=== PATIENT | male | born 1965 | race Caucasian/White ===

== ENCOUNTER 2025-02-24 13:10 | Emergency (ER) | payer BC ==
[~2025-02-24] VITALS: Ht 185.4 cm; Wt 97.5 kg
[~2025-02-24 13:10] MED LIST: APIX5TAB PO; EMPA10TA PO; FLEC150T2 PO; ROSU10TA72 PO
[2025-02-24 13:50] LABS: IMMATURE GRANULOCYTE ABSOLUTE 0.01 K/uL (0-1); NUCLEATED RED BLOOD CELLS 0.0 % (0.0-0.19); PLATELET COUNT (AUTO) 188 K/uL (130-400); RED BLOOD CELL COUNT(AUTO) 5.38 MIL/uL (4.50-6.20); RED CELL DISTRIBUTION WIDTH 12.9 % (11.0-15.5); WHITE BLOOD COUNT (AUTO) 6.5 K/uL (4.8-10.8)
[2025-02-24 13:52] LABS: APPEARANCE,URINE CLEAR (CLEAR); GLUCOSE, URINE (UA) 500 mg/dL (NEGATIVE); LEUKOCYTE ESTERASE ,URINE NEGATIVE Leu/uL (NEGATIVE); NITRATE,URINE NEGATIVE (NEGATIVE); OCCULT BLOOD,URINE NEGATIVE (NEGATIVE)
[2025-02-24 13:53] LABS: ADD UA MICROSCOPIC YES
[2025-02-24 14:08] LABS: CREATININE 0.8 mg/dL (0.5-1.3); GLOMERULAR FILTR. RATE CALC 100.0 mL/min (>90); GLUCOSE,RANDOM 86.0 mg/dL (70-105); SODIUM SERUM 140.0 mmol/L (136-145); UREA NITROGEN, BLOOD 13.0 mg/dL (7-18)
[2025-02-24 14:12] LABS: CREATINE KINASE, TOTAL 157.0 U/L (21-232)
--- NOTE | 2025-02-24 14:21 | HMCIMG ---
EXAM: CR Chest, 1 View. CLINICAL HISTORY: cp COMPARISON: None provided. FINDINGS: LUNGS: There is no mass, infiltrate, or acute pulmonary abnormality. PLEURAL SPACES: No evidence of pleural effusion or pneumothorax. MEDIASTINUM: Cardiac size and mediastinal contours within normal limits. BONES: No aggressive appearing osseous lesion seen. IMPRESSION: No acute cardiopulmonary pathology is evident. /[place]
--- NOTE | 2025-02-24 14:39 | ERN ---
General Chief Complaint: Palpitations Stated Complaint: PALPITAITONS/ AFIB Time Seen by MD: 13:13 Source: patient History of Present Illness Initial Comments Patient is a 60-year-old male coming in complaining of palpitations. Per patient he was cardioverted five days and states that yesterday with a home he started having racing heart today he took some metoprolol which was prescribed in the previous visit. He states that while in the hospital he received some metoprolol with the he became bradycardic and hypotensive so decided not to do it. Allergies: Coded Allergies: No Known Allergies (Unverified Allergy, Unknown, 02/15/25) Home Meds Reported Medications Rosuvastatin Calcium (Rosuvastatin Calcium) 10 Mg Tablet, 1 TAB PO DAILY for 30 Days, #30 TAB 0 Refills 02/16/25 Flecainide Acetate (Flecainide Acetate) 150 Mg Tablet, 1 TAB PO BID for 30 Days, #60 TAB 0 Refills 02/16/25 Empagliflozin (Jardiance) 10 Mg Tablet, 1 TAB PO DAILY for 30 Days, #30 TAB 0 Refills 02/16/25 Apixaban (Eliquis) 5 Mg Tablet, 1 TAB PO BID for 30 Days, #60 TAB 0 Refills 02/16/25 Past Medical History Past Medical History: A-Fib, Bronchitis Past Surgical History: Other Surgical History Other: CARDIAC ABLATION Family History Family History: Negative Social History Social History: ETOH ROS Dictation CONSTITUTIONAL: No chills, no fever, no weakness, no diaphoresis, no malaise. HEAD/FACE: No signs of trauma. EENT: No eye pain, no blurred vision, no tearing, no double vision, no ear pain, no ear discharge, no nose pain, no nasal congestion, no throat pain, no throat swelling, no mouth pain. RESPIRATORY: No cough, no orthopnea, no SOB, no stridor, no wheezing. CARDIOVASCULAR: No chest pain, no edema, palpitations, no syncope. GASTROINTESTINAL/ABDOMINAL: No abdominal pain, no constipation, no diarrhea, no nausea, no vomiting. GENITOURINARY: No abnormal discharge, no dysuria, no frequent urination, no hematuria. No complaints of pain in the genitals. MUSCULOSKELETAL: No back pain, no gout, no joint pain, no joint swelling, no muscle pain, no muscle stiffness, no neck pain. INTEGUMENTARY: No change in color, no change in hair/nails, no dryness, no lesion, no lumps, no rash. NEUROLOGICAL/PSYCH: No anxiety, not depressed, no emotional problem, no headach e, no numbness, no pre-existing deficit, no history of seizures, no tremors, no weakness. HEMATOLOGIC/LYMPHATIC: Not anemic, no history of blood clots, no apparent bleeding, no bruising, glands not swollen. All Systems Negative, Except as Noted. Physical Exam Physical Exam Dictation VITAL SIGNS: Reviewed. GENERAL APPEARANCE: Alert, oriented x3, no acute distress, obese. HEAD AND FACE: Non-traumatic. EYES: PERRL, pink conjunctivas, eyelid no trauma, anterior chamber clear. EARS: Pinnas intact and no signs of trauma or erythema. Ear canals clear and no discharge. TMs no erythema. NOSE: No discharge, no bleeding. OROPHARYNX: Mouth normal, teeth no caries, tongue pink. Pharynx clear, no erythema. Tonsils no exudates, no abscesses noted. Mucous membrane moist. NECK: Supple, non-tender, no thyromegaly, no masses, no JVD, no bruits. BREAST: Deferred. CHEST: No tenderness, no crepitus, no paradoxical movement, no retractions. LUNGS: Clear, well-ventilated, symmetric, no rales, no wheezing, no rhonchi, no stridor, good breath sounds bilaterally. HEART: Regular rate, regular rhythm, no murmur, no gallops. VASCULAR: No peripheral edema. ABDOMEN: Soft, positive bowel sounds, nondistended, no guarding, nontender, no rebound, no masses no hepatomegaly, no splenomegaly, no Espino's sign, no hernias. RECTAL: Deferred. GENITAL: Deferred. NEUROLOGICAL: Normal speech, gross motor function intact, gross sensory function intact. MUSCULOSKELETAL: Neck nontender, full range of motion, back nontender, full range of motion. EXTREMITIES: Nontender, full range of motion. SKIN: Color pink, dry, no turgor, no rash, no lacerations, no abrasions, no contusions. LYMPHATICS: Deferred. Results Laboratory and Microbiology Lab and Micro Result Laboratory Tests Test 02/24/25 13:38 02/24/25 13:44 Urine Color LIGHT-YELLOW (YELLOW) Urine Appearance CLEAR (CLEAR) Urine pH 5.0 (5.0-8.0) Urine Specific [place] 1.003 (1.001-1.031) Urine Protein NEGATIVE mg/dL (NEGATIVE) Urine Glucose (UA) 500 mg/dL (NEGATIVE) H Urine Ketones 10 mg/dL (NEGATIVE) H Urine Occult Blood NEGATIVE (NEGATIVE) Urine Nitrate NEGATIVE (NEGATIVE) Urine Bilirubin NEGATIVE mg/dL (NEGATIVE) Urine Urobilinogen 0.2 mg/dL (0.2-1.0) Urine Leukocyte Esterase NEGATIVE Steve/uL Urine RBC None /HPF (0-1) Urine WBC 0-1 /HPF (0-1) Urine Bacteria None /HPF (None Seen) White Blood Count 6.5 K/uL (4.8-10.8) Red Blood Count 5.38 MIL/uL (4.50-6.20) Hemoglobin 16.6 g/dL (14.0-18.0) Hematocrit 47.6 % (42-54) Mean Corpuscular Volume 88.5 fL (79-99) Mean Corpuscular Hemoglobin 30.9 pg (27.0-33.0) Mean Corpuscular Hemoglobin Concent 34.9 g/dL (32.0-36.0) Red Cell Distribution Width 12.9 % (11.0-15.5) Platelet Count 188 K/uL (130-400) Mean Platelet Volume 9.0 fL (7.5-10.5) Immature Granulocyte % (Auto) 0.2 % (0-1) Neutrophils (%) (Auto) 75.1 % (40.0-77.0) Lymphocytes (%) (Auto) 13.6 % (21.0-51.0) L Monocytes (%) (Auto) 7.6 % (3.0-13.0) Eosinophils (%) (Auto) 2.9 % (0.0-8.0) Basophils (%) (Auto) 0.6 % (0.0-5.0) Neutrophils # (Auto) 4.9 K/uL (1.8-7.7) Lymphocytes # (Auto) 0.9 K/uL (1.0-4.8) L Monocytes # (Auto) 0.5 K/uL (0.1-1.0) Eosinophils # (Auto) 0.19 K/uL (0.00-0.70) Basophils # (Auto) 0.04 K/uL (0.00-0.20) Absolute Immature Granulocyte (auto 0.01 K/uL (0-1) Nucleated Red Blood Cells 0.0 % (0.0-0.19) Sodium Level 140 mmol/L (136-145) Potassium Level 4.0 mmol/L (3.5-5.1) Chloride Level 104 mmol/L (101-111) Carbon Dioxide Level 25 mmol/L (21-32) Blood Urea Nitrogen 13 mg/dL (7-18) Creatinine 0.8 mg/dL (0.5-1.3) Glomerular Filtration Rate Calc 100 mL/min (>90) Random Glucose 86 mg/dL (70-105) Total Calcium 9.5 mg/dL (8.5-10.1) Magnesium Level 1.90 mg/dL (1.80-2.40) Total Creatine Kinase 157 U/L (21-232) Troponin I High Sensitivity 15 ng/L (4-75) B-Type Natriuretic Peptide 106 pg/mL (0-100) H Labs Reviewed?: Yes EKG/XRAY/US/CT/MRI EKG Comment 02/24/2025 time 1:18 p.m. Ventricular rate [address] wave elevation or depression MDM MDM: Differential diagnosis: History AFib, post cardioversion Rationale: Tests considered and ordered secondary to shared decision making include: labs, ECG and radiology Previous outside records reviewed: Old ER visits. Risk of complication and/or morbidity or mortality of patient management: None Medications-Per medication reconciliation Need for hospitalization: Patient does meet criteria for hospitalization. Need for emergency major/minor surgery: No Patient is a 60-year-old gentleman coming in due to increased heart rate. Per patient he was cardioverted a week ago. She states that yesterday his heart rate was going up he took his metoprolol in his not sure if he should do that. Upon evaluation in triage his heart rate was within normal limits. Spoke to Dr. Kohli patient's [employer] consultant who recommends small dose of metoprolol for 3-4 days. Patient will be scheduled for an outpatient visit on 02/25/2025 after 8:00 a.m.. Throughout ER visit patient has been stable. ED Course Orders Procedure Category Date Status Time 12 Lead Ekg Tracing- EKG 9/28/25 Complete Technical 13:19 Cbc With Differential LAB 02/24/25 Complete 13:28 Chest 1vw RAD 02/24/25 Resulted 13:28 Magnesium LAB 02/24/25 Complete 13:28 Creatine Kinase, Total LAB 02/24/25 Complete 13:28 Troponin I High LAB 02/24/25 Complete Sensitivity 13:28 Urinalysis Profile LAB 02/24/25 Complete 13:28 Basic Metabolic Panel LAB 02/24/25 Complete 13:28 B-Type Natriuretic LAB 02/24/25 Complete Peptide 13:30 Vital Signs Date Time Temp Pulse Resp B/P (MAP) Pulse Ox O2 Delivery O2 Flow Rate FiO2 02/24/25 15:32 98.2 97 18 131/92 98 Room Air* 0 02/24/25 14:17 98.2 99 18 119/81 98 Room Air* 0 02/24/25 13:14 97.9 66 16 125/90 96 0 DX & DISP Disposition: Discharge Departure Impression: Primary Impression: Atrial fibrillation Condition: Stable Scripts Metoprolol Tartrate (Metoprolol Tartrate) 25 Mg Tablet 1 TAB PO BID for 5 Days, #10 TAB 0 Refills Prov: PAPITO JOSE MD 02/24/25 Additional Instructions: FOLLOW-UP WITH PRIMARY CARE PROVIDER IN 1 TO 2 DAYS. TAKE MEDICATIONS DIRECTED HERE IN THE EMERGENCY ROOM. OKAY TO CONTINUE HOME MEDICATIONS UNLESS OTHERWISE DISCUSSED DURING YOUR VISIT IN THE EMERGENCY ROOM TODAY. RETURN TO YOUR NEAREST EMERGENCY ROOM IF SYMPTOMS WORSEN OR IF THERE IS NO IMPROVEMENT. CALL 911 IF YOU NEED IMMEDIATE ASSISTANCE. TAKE TYLENOL [id number] NEEDED AND IF NO CONTRAINDICATIONS ARE PRESENT. INCREASE ORAL HYDRATION. A WOUND CULTURE OR URINE CULTURE WAS ORDERED HERE IN THE EMERGENCY ROOM DEPARTMENT PLEASE FOLLOW-UP WITH PRIMARY CARE PROVIDER AND ADVISE THEM TO GET REPORTS FROM OUR FACILITY. IF YOU HAD ANY OFE WRAP/SPLINTS THAT WERE APPLIED HERE, PLEASE DO NOT REMOVE THEM UNTIL YOU SEE YOUR PRIMARY CARE OR SPECIALTY. Referrals: Referrals: PAUL SARMIENTO NP (PCP) Time of Disposition: 15:41 PAPITO JOSE MD Feb 24, 2025 14:39
[2025-02-24 15:32] VITALS: BP 131/92; PULSE 97; RESP 18; TEMP 98.3; O2SAT 98
--- NOTE | 2025-02-24 15:38 | EKG ---
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
[2025-02-24] MEDS ORDERED: METO25TA6 PO (15:41)
== END 2025-02-24 15:53 | disposition home or self-care (01) ==
LOC: EDH 13:10
DX: I48.91 Unspecified atrial fibrillation (principal); Z79.01 Long term (current) use of anticoagulants; Z79.84 Long term (current) use of oral hypoglycemic drugs; Z79.899 Other long term (current) drug therapy
CPT/HCPCS: 36415; 71045; 80048; 81001; 82550; 83735; 83880; 84484; 85025; 93005; 99284

== ENCOUNTER 2025-03-05 16:29 | Inpatient (IN) | payer BC ==
[~2025-03-05] VITALS: Ht 185.4 cm; Wt 95.3 kg
[~2025-03-05 16:29] MED LIST changes: +METO25TA6 PO; -ROSU10TA72 PO; +ROSU10TA98 PO
--- NOTE | 2025-03-05 17:02 | ERN ---
General Chief Complaint: Palpitations Stated Complaint: PALPITATIONS Time Seen by MD: 16:32 History of Present Illness Initial Comments 60-year-old male with past medical history of atrial fibrillation with RVR and multiple cardioversion and radio ablation on flecainide 150 mg b.i.d., Eliquis 5 mg b.i.d. and metoprolol succinate 100 mg b.i.d. presented to the ED with a chief complaint of palpitations for 5 days. He also complained of mild shortness of breath and dizziness for 5 days. He do not complain of chest pain, nausea, fever, vomiting and diaphoresis. Allergies: Coded Allergies: No Known Allergies (Unverified Allergy, Unknown, 02/15/25) Home Meds Active Scripts Metoprolol Tartrate (Metoprolol Tartrate) 25 Mg Tablet, 1 TAB PO BID for 5 Days, #10 TAB 0 Refills Prov:PAPITO JOSE MD 02/24/25 Reported Medications Rosuvastatin Calcium (Rosuvastatin Calcium) 10 Mg Tablet, 1 TAB PO DAILY for 30 Days, #30 TAB 0 Refills 02/16/25 Flecainide Acetate (Flecainide Acetate) 150 Mg Tablet, 1 TAB PO BID for 30 Days, #60 TAB 0 Refills 02/16/25 Empagliflozin (Jardiance) 10 Mg Tablet, 1 TAB PO DAILY for 30 Days, #30 TAB 0 Refills 02/16/25 Apixaban (Eliquis) 5 Mg Tablet, 1 TAB PO BID for 30 Days, #60 TAB 0 Refills 02/16/25 Past Medical History Past Medical History: A-Fib, Bronchitis, High Cholesterol Past Surgical History: Other Surgical History Other: CARDIAC ABLATION Family History Family History: Negative Social History Social History: ETOH ROS Dictation CONSTITUTIONAL: No chills, no fever, no weakness, no diaphoresis, no malaise. HEAD/FACE: No signs of trauma. EENT: No eye pain, no blurred vision, no tearing, no double vision, no ear pain, no ear discharge, no nose pain, no nasal congestion, no throat pain, no throat swelling, no mouth pain. RESPIRATORY: No cough, no orthopnea, SOB, no stridor, wheezing. CARDIOVASCULAR: Palpitation No chest pain, no edema, GASTROINTESTINAL/ABDOMINAL: No abdominal pain, no constipation, no diarrhea, no nausea, no vomiting. GENITOURINARY: No abnormal discharge, no dysuria, no frequent urination, no hematuria. No complaints of pain in the genitals. MUSCULOSKELETAL: No back pain, no gout, no joint pain, no joint swelling, no muscle pain, no muscle stiffness, no neck pain. INTEGUMENTARY: No change in color, no change in hair/nails, no dryness, no lesion, no lumps, no rash. NEUROLOGICAL/PSYCH: No anxiety, not depressed, no emotional problem, no headache, no numbness, no pre-existing deficit, no history of seizures, no tremors, no weakness. HEMATOLOGIC/LYMPHATIC: Not anemic, no history of blood clots, no apparent bleeding, no bruising, glands not swollen. Physical Exam Physical Exam Dictation GENERAL APPEARANCE: Alert, oriented x3, no acute distress, obese. HEAD AND FACE: Non-traumatic. EYES: PERRL, pink conjunctivas, eyelid no trauma, anterior chamber clear. EARS: Pinnas intact and no signs of trauma or erythema. Ear canals clear and no discharge. TMs no erythema. NOSE: No discharge, no bleeding. OROPHARYNX: Mouth normal, teeth no caries, tongue pink. Pharynx clear, no erythema. Tonsils no exudates, no abscesses noted. Mucous membrane moist. NECK: Supple, non-tender, no thyromegaly, no masses, no JVD, no bruits. BREAST: Deferred. CHEST: No tenderness, no crepitus, no paradoxical movement, no retractions. LUNGS: Clear, well-ventilated, symmetric, no rales, wheezing, no rhonchi, no stridor, good breath sounds bilaterally. HEART: Irregularly irregular rhythm, no murmur, no gallops. VASCULAR: No peripheral edema. ABDOMEN: Soft, positive bowel sounds, nondistended, no guarding, nontender, no rebound, no masses no hepatomegaly, no splenomegaly, no Espino's sign, no hernias. RECTAL: Deferred. GENITAL: Deferred. NEUROLOGICAL: Normal speech, gross motor function intact, gross sensory function intact. MUSCULOSKELETAL: Neck nontender, full range of motion, back nontender, full range of motion. EXTREMITIES: Nontender, full range of motion. SKIN: Color pink, dry, no turgor, no rash, no lacerations, no abrasions, no contusions. Results Laboratory and Microbiology Lab and Micro Result Laboratory Tests Test 03/05/25 16:52 03/05/25 16:56 Urine Color LIGHT-YELLOW (YELLOW) Urine Appearance CLEAR (CLEAR) Urine pH 5.0 (5.0-8.0) Urine Specific [place] 1.021 (1.001-1.031) Urine Protein NEGATIVE mg/dL (NEGATIVE) Urine Glucose (UA) >=1000 mg/dL (NEGATIVE) H Urine Ketones NEGATIVE mg/dL (NEGATIVE) Urine Occult Blood NEGATIVE (NEGATIVE) Urine Nitrate NEGATIVE (NEGATIVE) Urine Bilirubin NEGATIVE mg/dL (NEGATIVE) Urine Urobilinogen 0.2 mg/dL (0.2-1.0) Urine Leukocyte Esterase NEGATIVE Steve/uL Urine RBC None /HPF (0-1) Urine WBC 0-1 /HPF (0-1) Urine Bacteria None /HPF (None Seen) White Blood Count 8.2 K/uL (4.8-10.8) Red Blood Count 5.73 MIL/uL (4.50-6.20) Hemoglobin 17.2 g/dL (14.0-18.0) Hematocrit 53.6 % (42-54) Mean Corpuscular Volume 93.5 fL (79-99) Mean Corpuscular Hemoglobin 30.0 pg (27.0-33.0) Mean Corpuscular Hemoglobin Concent 32.1 g/dL (32.0-36.0) Red Cell Distribution Width 13.5 % (11.0-15.5) Platelet Count 199 K/uL (130-400) Mean Platelet Volume 9.1 fL (7.5-10.5) Immature Granulocyte % (Auto) 0.2 % (0-1) Neutrophils (%) (Auto) 62.0 % (40.0-77.0) Lymphocytes (%) (Auto) 25.3 % (21.0-51.0) Monocytes (%) (Auto) 8.7 % (3.0-13.0) Eosinophils (%) (Auto) 3.1 % (0.0-8.0) Basophils (%) (Auto) 0.7 % (0.0-5.0) Neutrophils # (Auto) 5.1 K/uL (1.8-7.7) Lymphocytes # (Auto) 2.1 K/uL (1.0-4.8) Monocytes # (Auto) 0.7 K/uL (0.1-1.0) Eosinophils # (Auto) 0.25 K/uL (0.00-0.70) Basophils # (Auto) 0.06 K/uL (0.00-0.20) Absolute Immature Granulocyte (auto 0.02 K/uL (0-1) Nucleated Red Blood Cells 0.0 % (0.0-0.19) Sodium Level 145 mmol/L (136-145) Potassium Level 4.3 mmol/L (3.5-5.1) Chloride Level 106 mmol/L (101-111) Carbon Dioxide Level 29 mmol/L (21-32) Blood Urea Nitrogen 22 mg/dL (7-18) H Creatinine 1.0 mg/dL (0.5-1.3) Glomerular Filtration Rate Calc 85 mL/min (>90) Random Glucose 93 mg/dL (70-105) Total Calcium 9.3 mg/dL (8.5-10.1) Magnesium Level 2.50 mg/dL (1.80-2.40) H Total Creatine Kinase 93 U/L (21-232) # Troponin I High Sensitivity 10 ng/L (4-75) B-Type Natriuretic Peptide 85 pg/mL (0-100) EKG/XRAY/US/CT/MRI EKG Comment 03/05/2025 time 4:36 p.m. Atrial flutter Ventricular rate [address] wave elevation or depression MDM MDM: Differential diagnosis: Palpitations, AFib RVR, Rationale: Tests considered and ordered secondary to shared decision making include: labs, ECG and radiology Previous outside records reviewed: Old ER visits. Risk of complication and/or morbidity or mortality of patient management: None Medications-Per medication reconciliation Need for hospitalization: Patient does meet criteria for hospitalization. Need for emergency major/minor surgery: No There are no social concerns with this patient. Prescription drug management Prescriptions will include symptomatic care Patient's prior external medical records from other ER visits were reviewed by me as indicated. Prior testing and results from previous visits were reviewed. Prior tests were taken into account with medical decision making and resource utilization, independent historian/historians were used to obtain complete medical history. I independently interpreted the test that were performed, results were reviewed by me and considered findings on radiology if ordered. Medical management and examination interpretation discussions were had by me with other qualified healthcare professionals as indicated for the patient's care. ED Course Orders Procedure Category Date Status Time 12 Lead Ekg Tracing- EKG 03/05/25 Complete Technical 16:40 Cbc With Differential LAB 03/05/25 Complete 16:45 Chest 1vw RAD 03/05/25 Resulted 16:45 Magnesium LAB 03/05/25 Complete 16:45 Creatine Kinase, Total LAB 03/05/25 Complete 16:45 Troponin I High LAB 03/05/25 Complete Sensitivity 16:45 Urinalysis Profile LAB 03/05/25 Complete 16:45 Basic Metabolic Panel LAB 03/05/25 Complete 16:45 B-Type Natriuretic LAB 03/05/25 Complete Peptide 16:54 Diazepam 2 Mg Tab PHA 03/05/25 Complete (Valium 2 Mg Tab) 18:00 Current Medications Medications (Trade) Dose Ordered Sig/[place] Route PRN Reason Start Time Stop Time Status Last Admin Dose Admin Diazepam (VALium 2 mg Tab) 2 mg ONCE ONCE PO 03/05/25 18:00 03/05/25 18:01 DC 03/05/25 18:11 Vital Signs Date Time Temp Pulse Resp B/P (MAP) Pulse Ox O2 Delivery O2 Flow Rate FiO2 03/05/25 18:27 98.2 113 16 102/82 98 Room Air* 0 21 03/05/25 17:26 98.2 107 16 130/81 98 Room Air* 0 21 03/05/25 16:31 98.1 123 20 113/87 98 Room Air 0 DX & DISP Disposition: Other(Comment) (patient care transition to dr basilio) Departure Impression: Primary Impression: Atrial fibrillation with rapid ventricular response Condition: Stable Referrals: PAUL SARMIENTOP (PCP) RIK PINEDO MD Mar 05, 2025 17:02 PAPITO JOSE MD Mar 05, 2025 18:41
[2025-03-05 17:03] LABS: IMMATURE GRANULOCYTE ABSOLUTE 0.02 K/uL (0-1); NUCLEATED RED BLOOD CELLS 0.0 % (0.0-0.19); PLATELET COUNT (AUTO) 199 K/uL (130-400); RED BLOOD CELL COUNT(AUTO) 5.73 MIL/uL (4.50-6.20); RED CELL DISTRIBUTION WIDTH 13.5 % (11.0-15.5); WHITE BLOOD COUNT (AUTO) 8.2 K/uL (4.8-10.8)
[2025-03-05 17:05] LABS: APPEARANCE,URINE CLEAR (CLEAR); GLUCOSE, URINE (UA) >=1000 mg/dL (NEGATIVE); LEUKOCYTE ESTERASE ,URINE NEGATIVE Leu/uL (NEGATIVE); NITRATE,URINE NEGATIVE (NEGATIVE); OCCULT BLOOD,URINE NEGATIVE (NEGATIVE)
[2025-03-05 17:12] LABS: CREATININE 1.0 mg/dL (0.5-1.3); GLOMERULAR FILTR. RATE CALC 85.0 mL/min (>90); GLUCOSE,RANDOM 93.0 mg/dL (70-105); SODIUM SERUM 145.0 mmol/L (136-145); UREA NITROGEN, BLOOD 22.0 mg/dL (7-18)
--- NOTE | 2025-03-05 17:14 | EKG ---
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1965 Requested By: RIK PINEDO Order Number: [id number] Reading MD: Sae Graf Measurements Intervals [place] Rate: 110 P: 0 [place]: 0 QRS: -5 QRSD: 117 T: 31 QT: 403 QTc: 545 Interpretive Statements ECTOPIC ATRIAL TACHYCARDIA Nonspecific intraventricular conduction delay Low voltage, extremity leads Prolonged QT interval Compared to ECG 02/24/2025 13:18:19 2:1 AV block now present Intraventricular conduction delay now present Prolonged QT interval now present Atrial fibrillation no longer present Electronically Signed On 03-07-2025 06:53:20 CDT by Sae Graf Please click the below link to view image of tracing.
[2025-03-05 17:18] LABS: ADD UA MICROSCOPIC YES
[2025-03-05 17:23] LABS: CREATINE KINASE, TOTAL 93.0 U/L (21-232)
--- NOTE | 2025-03-05 17:59 | HMCIMG ---
EXAM: XR Chest, 1 View. CLINICAL HISTORY: 60-year-old male with palpitations, negative. COMPARISON: Similar to prior. XR Chest 13:37 02/24/25 FINDINGS: LUNGS: The lungs are clear. No consolidation. PLEURAL SPACES: No pleural effusion or pneumothorax. HEART: The heart size is normal. BONES: No acute osseous abnormality. IMPRESSION: 1. No acute findings. 2. Similar to prior XR Chest 13:37 02/24/25 /[place]
[2025-03-05] MEDS: diazePAM 2 MG TAB PO ONE (18:11)
--- NOTE | 2025-03-05 19:12 | NUR ---
transfered care to génesis
--- NOTE | 2025-03-05 20:14 | HP ---
History of Present Illness Reason for Visit: palpitaitons History of Present Illness Mr. Rodriguez is a 60 year male that was seen and examined today on 03/05/2025. Patient is a good historian of personal health Patient states that he came to the emergency department with a chief complaint of palpitations. Onset was five days ago. Location is middle of chest. Duration is on and off. Character is described as fluttering in the chest. There was no alleviating factors. Symptoms are aggravated with physical activity. Patient reports associated dizziness and shortness of breaths. Today palpitation resolved with 2 mg of diazepam vape. Patient was seen on 02/19/2025 with a similar presentation and was followed by cardiology service. They recommended flecainide 150 mg by mouth twice daily and metoprolol 12.5 mg by mouth twice daily. Patient also has a 2D echo that showed LVEF 45% on 02/18/2025. On previous admission patient was cardioversion with sedation. Patient also has received an ablation in the past. Patient also reports that after he was discharged with the hospital he attempted to follow up with the Cardiology office for evaluation by EP however they told him there was no appointments available until April. Past Medical History ADDITIONAL PAST MEDICAL HISTORY: [AFib on chronic anticoagulation with Eliquis, 2D echo on 02/18/2025 shows LVEF 45%, hypertension, hyperlipidemia] SOCIAL HISTORY: [Negative for smoking, alcohol use, drug use] SURGICAL HISTORY: [Ablation, cardioversion] Review of Systems General: No Fever, No Chills, No Night Sweats, No Fatigue, No Malaise, No Appetite, No Other HEENT: No Head Aches, No Visual Changes, No Eye Pain, No Ear Pain, No Dysphasia, No Sinus Congestion, No Post Nasal Drip, No Sore Throat, No Other Pulmonary: Dyspnea; No Cough, No Pleuritic Chest Pain, No Other Cardiovascular: Palpitations, Lt Headedness; No: Chest Pain, Orthopnea, Paroxysmal Noc. Dyspnea, Edema, Other Gastrointestinal: No: Nausea, Vomiting, Abdominal Pain, Diarrhea, Constipation, Melena, Hematochezia, Other Genitourinary: No Dysuria, No Frequency, No Incontinence, No Hematuria, No Retention, No Other Musculoskeletal: No: other, neck pain, shoulder pain, arm pain, back pain, hand pain, leg pain, foot pain Skin: No Urticaria, No Rash, No Other Neurological: No: Weakness, Numbness, Incoordination, Change in speech, Confusion, Seizures, Other Allergies: Coded Allergies: No Known Allergies (Unverified Allergy, Unknown, 02/15/25) Scheduled Apixaban (Eliquis), 1 TAB PO BID, (Reported) Empagliflozin (Jardiance), 1 TAB PO DAILY, (Reported) Flecainide Acetate (Flecainide Acetate), 1 TAB PO BID, (Reported) Metoprolol Tartrate (Metoprolol Tartrate), 1 TAB PO BID Rosuvastatin Calcium (Rosuvastatin Calcium), 1 TAB PO DAILY, (Reported) Exam Vital Signs Vital Signs Date Time Temp Pulse Resp B/P (MAP) Pulse Ox O2 Delivery O2 Flow Rate FiO2 03/05/25 19:14 98.2 98 16 105/80 99 Room Air* 0 21 General Appearance: Alert, Oriented X3, Cooperative, No acute distress HEENT: Atraumatic Respiratory: Clear to auscultation, Normal air movement, NL respiratory effort Cardiovascular: Normal S1, Normal S2, Other (Atrial fibrillation) Abdominal: Normal bowel sounds, Soft, No tenderness, No hepatospenomegaly Extremities: No clubbing, No cyanosis, No edema Skin: No significant lesion Neuro: Normal gait, Normal speech, Strength at 5/5 X4 ext, Sensation intact, Cr anial nerves 3-12 NL Psych/Mental Status: Mental status NL, Mood NL, Thoughts/Content NL Assessment/Plan ASSESSMENT: [ AFib with a RVR, POA Hypertension Hyperlipidemia] PLAN: [ Admit patient to pccu as inpatient status. Consult cardiology for evaluation and further recommendations Restart patient's home medications flecainide, metoprolol, Eliquis Administer metoprolol 5 mg IV every 5 minutes as needed for AFib RVR with heart rate greater than 120 beats per minute max three doses. Consider resuming home medications once they have been reconciled At time of admission home medications has been reconciled For now: Hydralazine 10 mg IV every 4 hours for systolic blood pressure greater than 160 mmHg Atorvastatin 40 mg by mouth once daily GI prophylaxis, famotidine DVT prophylaxis, DOAC ADVANCED CARE PLANNING 1. Which of the following were discussed? Hospice Care - Yes Therapeutic options - yes Advance Directives - Yes - patient states he does not have any advance directives in place at this time, however his friend Sabiha knox can make decisions for him if he becomes unable. Other discussions - patient wishes to remain a full code at this time 2. Discussed with who? Patient 3. Voluntary nature of this service was explained to the patient? Yes 4. Amount of time spent - ___16 minutes____ 5. Reviewed by Physician? (if this service was performed by NPP) Yes This document was generated in part using voice recognition software, occasional wrong word or sound alike substitutions may have occurred due to the inherent limitations of voice recognition software. Read the chart carefully and recognize using context, where the substitutions have occurred. Although every effort was made to edit the content, waistline joiner overlock and typing errors may occur ATTESTATION BY PHYSICIAN I have seen and examined the patient. I reviewed the documentation, medical decision making, and treatment plan as noted by the mid-level provider above. I agree with the findings and plan of care. ] ILEANA SYED [facility] Mar 05, 2025 20:14
[2025-03-05] MEDS ORDERED: PHARMACY COMMUNICATION MISC ONE (20:30)
--- NOTE | 2025-03-05 20:50 | NUR ---
PATIENT REPORT GIVEN TO JOHN CHAPMAN
[2025-03-05 21:24] VITALS: BP 136/67; PULSE 100; RESP 18; TEMP 98.1
[2025-03-05] MEDS ORDERED: LACTULOSE 20 GM/30 ML UDCUP PO PRN (21:30)
[2025-03-05 22:00] VITALS: O2SAT 98
[2025-03-05 22:06] LABS: IMMATURE GRANULOCYTE ABSOLUTE 0.02 K/uL (0-1); NUCLEATED RED BLOOD CELLS 0.0 % (0.0-0.19); PLATELET COUNT (AUTO) 173 K/uL (130-400); RED BLOOD CELL COUNT(AUTO) 5.04 MIL/uL (4.50-6.20); RED CELL DISTRIBUTION WIDTH 13.6 % (11.0-15.5); WHITE BLOOD COUNT (AUTO) 6.2 K/uL (4.8-10.8)
[2025-03-05] MEDS: FLECAINIDE ACETATE 100 MG TABLET PO SCH (22:13)
[2025-03-05 22:17] LABS: CREATININE 1.0 mg/dL (0.5-1.3); GLOMERULAR FILTR. RATE CALC 85.0 mL/min (>90); GLUCOSE,RANDOM 98.0 mg/dL (70-105); PHOSPHORUS 3.8 mg/dL (2.5-4.9); SODIUM SERUM 143.0 mmol/L (136-145); UREA NITROGEN, BLOOD 22.0 mg/dL (7-18)
[2025-03-05 22:33] VITALS: PULSE 90
[2025-03-06] VITALS (9 sets, daily range): BP systolic 101–133; BP diastolic 63–78; PULSE 75–120; RESP 16–18; TEMP 97.4–98.1; O2SAT 98–100
[2025-03-06] MEDS: FAMOTIDINE 20MG TAB PO SCH (08:28)
--- NOTE | 2025-03-06 09:28 | CONS ---
[facility] [address] CARDIOLOGY CONSULTATION REPORT Cardiology consultation note dictated for Carl Souza MD Date Patient Seen: Mar 06, 2025 Requesting Physician: Rashi Kline MD Reason for Consultation: AFib with RVR History of Present Illness: This is a 60-year-old male with a past medical history paroxysmal atrial fibrillation s/p cardioversion x2 in 2019 with subsequent catheter ablation in 10/2023, s/p successful cardioversion for atrial fibrillation on 02/19/2025, on chronic anticoagulation Eliquis, 2D echo on 02/18/2025 with an LVEF of 45% with a moderately dilated left atrium, mild obstructive sleep apnea on Zepbound, history of amiodarone related thyroid toxicity, and hypertension presented to the ED with complaints of palpitations for 5d. Cardiology has been consulted for atrial fibrillation with rapid ventricular response. The patient endorsed general body weakness, palpitations, shortness of breath, and dizziness for approximately 5 days. EKG on admission demonstrated atrial flutter 2:1 with a hr of 110bpm. The patient underwent a successful cardioversion on 02/19/2025 but had an ED visit on 02/24/2025 due to palpitations and was found to be in atrial fibrillation. He was recommended to take Metoprolol tartrate 25 mg b.i.d. for 5 days and to go to the [facility] on 02/25/2025 at [address] Kohli. He admitted to taking metoprolol succinate 100 mg daily for 5 days prior to admission from an old prescription bottle due to heart rates reaching 130's at home, but was without resolution. Past Medical History: As per HPI and summarized below Past Surgical History: None Family History: Denies a family history of heart disease. Social History: The patient lives alone. Habits: The patient denies alcohol, tobacco, or illicit drug use. Home Meds: Flecainide 150 mg b.i.d. Eliquis 5 mg b.i.d. Jardiance 10 mg daily Rosuvastatin 10 mg daily Current Meds: Medications Dose Ordered Sig/Kinjal Start Time Stop Time Status Last Admin Apixaban 5 mg BID 03/05/25 21:00 04/04/25 20:59 03/06/25 08:28 Flecainide Acetate 150 mg BID 03/05/25 21:00 04/04/25 20:59 03/06/25 08:28 Metoprolol Tartrate 5 mg Q5M PRN 03/05/25 20:30 Acetaminophen 650 mg Q6H PRN 03/05/25 21:30 04/04/25 21:29 Atorvastatin Calcium 40 mg HS 03/06/25 21:00 04/05/25 20:59 Famotidine 20 mg DAILY 03/06/25 09:00 04/05/25 08:59 03/06/25 08:28 Hydralazine HCl 10 mg Q6H PRN 03/05/25 21:30 04/04/25 21:29 Lactulose 20 gm BID PRN 03/05/25 21:30 04/04/25 21:29 Morphine Sulfate 2 mg Q4H PRN 03/05/25 21:30 03/12/25 21:29 Ondansetron HCl 4 mg Q6H PRN 03/05/25 21:30 04/04/25 21:29 Metoprolol Tartrate 12.5 mg BID 03/06/25 09:00 04/05/25 08:59 03/06/25 08:28 Review of Systems: CONST: No fever, fatigue, or weight changes. EYES: No recent vision problems. ENT: No congestion, ear pain, or sore throat. C/V: No chest pain, palpitations, or edema. RESP: No cough, congestion, wheezing or shortness of breath. GI: No abdominal pain, nausea, vomiting, constipation, or diarrhea. : No incontinence or dysuria. SKIN: No rash. NEURO: No headache, focal numbness or weakness, dizziness, or seizures. PSYCH: No depression or anxiety. HEME: No abnormal bruising or bleeding. LYMPH: No swollen glands. Physical Examination: GENERAL: No acute distress. HEAD: Normal with no signs of head trauma. EYES: Conjunctiva and sclera normal. ENT: Hearing grossly intact, normal oropharynx. NECK: Supple without JVD. Normal carotid upstrokes without bruits. LUNGS: Clear breath sounds bilaterally. No wheezes, or rhonchi. HEART: Irregularly irregular rate and rhythm. Normal S1 and S2 without murmurs, gallop or rub. VASC: Peripheral pulses +2 bilaterally. ABD: Bowel sounds normal, soft, nontender, no masses, no organomegaly. No audible bruits. : Not examined LYMPH: No lymphadenopathy noted. EXT: No clubbing, cyanosis or edema. SKIN: No rashes or lesions noted. NEURO: Awake, alert, and oriented x3. No focal sensory or strength deficits noted. Vital Signs (last 8hr) Date Time Temp Pulse Resp B/P (MAP) Pulse Ox O2 Delivery O2 Flow Rate FiO2 03/06/25 07:49 97.5 114 18 133/67 96 Room Air 03/06/25 04:00 98.1 120 18 109/63 99 Room Air Laboratory: Hematology Labs: Test 03/05/25 22:00 Range/Units White Blood Count 6.2 4.8-10.8 K/uL Red Blood Count 5.04 4.50-6.20 MIL/uL Hemoglobin 15.5 14.0-18.0 g/dL Hematocrit 46.3 42-54 % Mean Corpuscular Volume 91.9 79-99 fL Mean Corpuscular Hemoglobin 30.8 27.0-33.0 pg Mean Corpuscular Hemoglobin Concent 33.5 32.0-36.0 g/dL Red Cell Distribution Width 13.6 11.0-15.5 % Platelet Count 173 130-400 K/uL Mean Platelet Volume 9.1 7.5-10.5 fL Immature Granulocyte % (Auto) 0.3 0-1 % Neutrophils (%) (Auto) 55.1 40.0-77.0 % Lymphocytes (%) (Auto) 32.0 21.0-51.0 % Monocytes (%) (Auto) 7.9 3.0-13.0 % Eosinophils (%) (Auto) 3.9 0.0-8.0 % Basophils (%) (Auto) 0.8 0.0-5.0 % Neutrophils # (Auto) 3.4 1.8-7.7 K/uL Lymphocytes # (Auto) 2.0 1.0-4.8 K/uL Monocytes # (Auto) 0.5 0.1-1.0 K/uL Eosinophils # (Auto) 0.24 0.00-0.70 K/uL Basophils # (Auto) 0.05 0.00-0.20 K/uL Absolute Immature Granulocyte (auto 0.02 0-1 K/uL Nucleated Red Blood Cells 0.0 0.0-0.19 % Chemistry Labs: Test 03/05/25 22:00 03/05/25 16:56 Range/Units Sodium Level 143 136-145 mmol/L Potassium Level 4.3 3.5-5.1 mmol/L Chloride Level 107 101-111 mmol/L Carbon Dioxide Level 29 21-32 mmol/L Blood Urea Nitrogen 22 H 7-18 mg/dL Creatinine 1.0 0.5-1.3 mg/dL Glomerular Filtration Rate Calc 85 >90 mL/min Random Glucose 98 70-105 mg/dL Total Calcium 8.8 8.5-10.1 mg/dL Phosphorus Level 3.8 2.5-4.9 mg/dL Magnesium Level 2.40 1.80-2.40 mg/dL Total Creatine Kinase 93 # 21-232 U/L Troponin I High Sensitivity 10 4-75 ng/L B-Type Natriuretic Peptide 85 0-100 pg/mL Diagnostics / Radiology: Impression and Plan: Atrial fibrillation with rapid ventricular response Paroxysmal atrial fibrillation s/p cardioversion x2 in 2019 with subsequent catheter ablation in 10/2023 S/p successful cardioversion for atrial fibrillation on 02/19/2025 On chronic anticoagulation Eliquis 2D echo on 02/18/2025 with an LVEF of 45% Mild obstructive sleep apnea on Zepbound History of amiodarone related thyroid toxicity Hypertension Atrial fibrillation with rapid ventricular response EKG on admission demonstrated atrial flutter with a hr of 110bpm Current telemetry demonstrating atrial fibrillation with a heart rate of 108bpm -Continue Flecainide 150 mg b.i.d., Lopressor to 12.5mg bid, hold for hr <50bpm, and Eliquis 5 mg b.i.d. -Utilize Lopressor IV as needed for hr > 120bpm KAMI SANCHES Mar 06, 2025 09:28 CARL SOUZA MD Mar 07, 2025 07:13
--- NOTE | 2025-03-06 10:57 | NUR ---
DCP; HOME Pt lives at [facility] in a his condo, alone. States he is "totally independent", no DME or HH. PCP is Loraine rosas and uses [facility] [address]. Discussed MPOA, states he has no family. Pt agreeable to completing MPOA. Sw to revisit and assist. PCP is Loraine rosas and uses [facility] [address]. Pt denies dc needs and will return home at dc ER CONTACT IS TIRSO REYNOLDS [phone] Addendum: 03/06/25 at 1103 by LORETTA COREAS Amended: Links added.
--- NOTE | 2025-03-06 16:33 | PN ---
[facility] PROGRESS NOTE Date of Service: Mar 06, 2025 Time of Service: 09:25 SUBJECTIVE: Mr. Kumar is a 60 year male that was seen and examined today on 03/05/2025. Patient is a good historian of personal health. Patient states that he came to the emergency department with a chief complaint of palpitations. Onset was five days ago. Location is middle of chest. Duration is on and off. Character is described as fluttering in the chest. There was no alleviating factors. Symptoms are aggravated with physical activity. Patient reports associated dizziness and shortness of breaths. Today palpitation resolved with 2 mg of diazepam vape. Patient was seen on 02/19/2025 with a similar presentation and was followed by cardiology service. They recommended flecainide 150 mg by mouth twice daily and metoprolol 12.5 mg by mouth twice daily. Patient also has a 2D echo that showed LVEF 45% on 02/18/2025. On previous admission patient was cardioversion with sedation. Patient also has received an ablation in the past. Patient also reports that after he was discharged with the hospital he attempted to follow up with the Cardiology office for evaluation by EP however they told him there was no appointments available until April. 03/06/2025 During my time of evaluation, patient was in irregularly irregular rhythm, possibly atrial fibrillation. He did not have any tele monitor at this moment. Patient stated that he had these symptoms for the past 5 days and he was waking up at night short of breath with palpitation and his heart rate above 100 consistently. He denied any swelling in legs. He stated taking flecainide daily and was compliant with the medication. Currently, he is vitally stable with blood pressure 109/63 with heart rate elevated at 120. BNP is unremarkable, 85. Cardiology consult has been placed. We will follow up with their recommendations. REVIEW OF SYSTEMS CONSTITUTIONAL: Complains of generalized weakness secondary to palpitations Denies fevers, chills, or night sweats. No unintentional weight loss reported. NEUROLOGICAL: Denies headache, amaurosis fugax, motor weakness, sensory deficit, vertigo/spinning sensation, gait abnormalities, or tremors. ENT: No hearing loss, otalgia, otorrhea, rhinitis, rhinorrhea, hoarseness, or sore throat. CARDIOVASCULAR: Palpitations, dyspnea on exertion Denies any exertional angina or chest pain. PULMONARY: Shortness of breath Denies any shortness of breath, cough, phlegm/sputum, hemoptysis, pleuritic chest pain. SLEEP: States waking up at night with shortness of breath and palpitation. Denies morning headaches, daytime somnolence or napping. Denies difficulty falling asleep, staying asleep, waking from sleep. Denies knowledge of snoring. GASTROINTESTINAL: Denies any type of dysphagia to either liquids or solids. Denies nausea, vomiting, pyrosis, early satiety, abdominal pain, diarrhea, constipation, or changes in stool consistency or caliber. Denies coffee-ground emesis, hematemesis, hematochezia, or melanotic stools. GENITOURINARY: Denies frequency, urgency, nocturia, hematuria or incontinence, Low urinary stream, straining to void, urinary intermittency or hesitancy, splitting of the voiding stream, terminal dribbling. DERMATOLOGIC: Denies rashes or pruritus. PHYSICAL EXAM GENERAL APPEARANCE: The patient is awake, alert, and oriented. NEUROLOGICAL: Cranial nerves grossly intact. Motor is 5/5 in bilateral upper and lower extremities proximal to distal. No sensory deficits. HEENT: Face is symmetric. Pupils are equal and reactive. Extraocular movements are intact. NECK: Supple. No JVD. CHEST: Normal chest expansion. LUNGS: Absence of any rales, rhonchi or any wheezing. CARDIOVASCULAR: Irregularly irregular rhythm. ABDOMEN: Soft, nontender, and nondistended. : Deferred. No Stein. EXTREMITIES: Non-edematous and not cyanotic. No clubbing. SKIN: No skin breakdown. Vital Signs (last 8hr) Date Time Temp Pulse Resp B/P (MAP) Pulse Ox O2 Delivery O2 Flow Rate FiO2 03/06/25 11:56 97.9 75 18 127/71 98 Room Air LABS: Laboratory: Test 03/06/25 10:54 03/05/25 22:00 03/05/25 16:56 03/05/25 16:52 Range/Units Thyroid Stimulating Hormone (TSH) 2.01 # 0.36-3.74 uIU/mL White Blood Count 6.2 4.8-10.8 K/uL Red Blood Count 5.04 4.50-6.20 MIL/uL Hemoglobin 15.5 14.0-18.0 g/dL Hematocrit 46.3 42-54 % Mean Corpuscular Volume 91.9 79-99 fL Mean Corpuscular Hemoglobin 30.8 27.0-33.0 pg Mean Corpuscular Hemoglobin Concent 33.5 32.0-36.0 g/dL Red Cell Distribution Width 13.6 11.0-15.5 % Platelet Count 173 130-400 K/uL Mean Platelet Volume 9.1 7.5-10.5 fL Immature Granulocyte % (Auto) 0.3 0-1 % Neutrophils (%) (Auto) 55.1 40.0-77.0 % Lymphocytes (%) (Auto) 32.0 21.0-51.0 % Monocytes (%) (Auto) 7.9 3.0-13.0 % Eosinophils (%) (Auto) 3.9 0.0-8.0 % Basophils (%) (Auto) 0.8 0.0-5.0 % Neutrophils # (Auto) 3.4 1.8-7.7 K/uL Lymphocytes # (Auto) 2.0 1.0-4.8 K/uL Monocytes # (Auto) 0.5 0.1-1.0 K/uL Eosinophils # (Auto) 0.24 0.00-0.70 K/uL Basophils # (Auto) 0.05 0.00-0.20 K/uL Absolute Immature Granulocyte (auto 0.02 0-1 K/uL Nucleated Red Blood Cells 0.0 0.0-0.19 % Sodium Level 143 136-145 mmol/L Potassium Level 4.3 3.5-5.1 mmol/L Chloride Level 107 101-111 mmol/L Carbon Dioxide Level 29 21-32 mmol/L Blood Urea Nitrogen 22 H 7-18 mg/dL Creatinine 1.0 0.5-1.3 mg/dL Glomerular Filtration Rate Calc 85 >90 mL/min Random Glucose 98 70-105 mg/dL Total Calcium 8.8 8.5-10.1 mg/dL Phosphorus Level 3.8 2.5-4.9 mg/dL Magnesium Level 2.40 1.80-2.40 mg/dL Total Creatine Kinase 93 # 21-232 U/L Troponin I High Sensitivity 10 4-75 ng/L B-Type Natriuretic Peptide 85 0-100 pg/mL Urine Color LIGHT-YELLOW YELLOW Urine Appearance CLEAR CLEAR Urine pH 5.0 5.0-8.0 Urine Specific [place] 1.021 1.001-1.031 Urine Protein NEGATIVE NEGATIVE mg/dL Urine Glucose (UA) >=1000 H NEGATIVE mg/dL Urine Ketones NEGATIVE NEGATIVE mg/dL Urine Occult Blood NEGATIVE NEGATIVE Urine Nitrate NEGATIVE NEGATIVE Urine Bilirubin NEGATIVE NEGATIVE mg/dL Urine Urobilinogen 0.2 0.2-1.0 mg/dL Urine Leukocyte Esterase NEGATIVE NEGATIVE Steve/uL Urine RBC None 0-1 /HPF Urine WBC 0-1 0-1 /HPF Urine Bacteria None None Seen /HPF Current Medications Medications (Trade) Dose Ordered Sig/Kinjal Route PRN Reason Start Time Stop Time Status Last Admin Dose Admin Acetaminophen (TYLenol 325MG TAB) 650 mg Q6H PRN PO TEMPERATURE GREATER THAN 101.5 03/05/25 21:30 04/04/25 21:29 Apixaban (EliquIS) 5 mg BID PO 03/05/25 21:00 04/04/25 20:59 03/06/25 08:28 5 MG Atorvastatin Calcium (LIPItor 40MG) 40 mg HS PO 03/06/25 21:00 04/05/25 20:59 Famotidine (Pepcid 20mg Tab) 20 mg DAILY PO 03/06/25 09:00 04/05/25 08:59 03/06/25 08:28 20 MG Flecainide Acetate (Tambocor) 150 mg BID PO 03/05/25 21:00 04/04/25 20:59 03/06/25 08:28 150 MG Hydralazine HCl (APRESOLine 20MG INJ) 10 mg Q6H PRN IV For:SBP above 160;DBP above 90 03/05/25 21:30 04/04/25 21:29 Lactulose (Constulose 20gm/ 30ml Udcup) 20 gm BID PRN PO CONSTIPATION 03/05/25 21:30 04/04/25 21:29 Metoprolol Tartrate (loprESSOR) 5 mg Q5M PRN IV AFIB RVR HR >120 BPM 03/05/25 20:30 Metoprolol Tartrate (loprESSOR) 12.5 mg BID PO 03/06/25 09:00 04/05/25 08:59 03/06/25 08:28 12.5 MG Metoprolol Tartrate (loprESSOR) 100 mg BID PO 03/05/25 21:00 03/05/25 20:16 DC Morphine Sulfate (morPHINE 4MG SYG) 2 mg Q4H PRN IVP SEVERE PAIN (7-10) 03/05/25 21:30 03/12/25 21:29 Ondansetron HCl (zoFRAN 4MG INJ) 4 mg Q6H PRN IV NAUSEA/VOMITING 03/05/25 21:30 04/04/25 21:29 DIAGNOSTICS / RADIOLOGY: PATIENT: ROXANA KUMAR MR#: [id number] : 1965 SEX: M AGE: 60 LOCATION: [facility] ORDER 45 STATUS: REG ER REPORT#: [id number] SERVICE 44 REASON: palpitations ORDERING PHYSICIAN: PAPITO JOSE MD PROCEDURE: CXR1VW - CHEST 1VW EXAM: XR Chest, 1 View. CLINICAL HISTORY: 60-year-old male with palpitations, negative. COMPARISON: Similar to prior. XR Chest 13:37 02/24/25 FINDINGS: LUNGS: The lungs are clear. No consolidation. PLEURAL SPACES: No pleural effusion or pneumothorax. HEART: The heart size is normal. BONES: No acute osseous abnormality. IMPRESSION: 1. No acute findings. 2. Similar to prior XR Chest 13:37 02/24/25 /[place] DICTATED BY: KUMAR GODINEZ MD DATE: 03/05/251857 ELECTRONICALLY SIGNED BY: KUMAR GODINEZ MD DATE: 03/05/251857 ASSESSMENT: Atrial fibrillation with rapid ventricular rate Other problems: Hypertension, Hyperlipidemia, obstructive sleep apnea, History of amiodarone related thyroid toxicity PLAN: Atrial fibrillation with rapid ventricular rate Patient presented with irregularly irregular rhythm and EKG on admission showed atrial flutter with a hr of 110 bpm. BNP is unremarkable, 85. 2D echo on 02/18/2025 with an LVEF of 45% - Continue Flecainide 150 mg b.i.d., Lopressor to 12.5 mg bid, hold for hr <50bpm, and Eliquis 5 mg b.i.d. - Utilize Lopressor IV as needed for hr > 120bpm - Start tele monitoring and monitor for RVR. - Follow up with TSH results. - Follow up with the Cardiology recommendations Hyperlipidemia: Atorvastatin 40 mg GI prophylaxis: Famotidine 20 mg daily ATTESTATION BY PHYSICIAN I have seen and examined the patient. I reviewed the documentation, medical decision making, and treatment plan as noted by the resident provider above. I agree with the findings and plan of care. CHECO COOLEY MD, MUHAMMAD H MD Mar 06, 2025 16:33
[2025-03-07] VITALS (7 sets, daily range): BP systolic 100–118; BP diastolic 46–85; PULSE 66–120; RESP 16–20; TEMP 97.6–98.7; O2SAT 96–97
[2025-03-07 04:05] LABS: NUCLEATED RED BLOOD CELLS 0.0 % (0.0-0.19); PLATELET COUNT (AUTO) 173.0 K/uL (130-400); RED BLOOD CELL COUNT(AUTO) 5.17 MIL/uL (4.50-6.20); RED CELL DISTRIBUTION WIDTH 13.6 % (11.0-15.5); WHITE BLOOD COUNT (AUTO) 7.0 K/uL (4.8-10.8)
[2025-03-07 04:14] LABS: CREATININE 1.0 mg/dL (0.5-1.3); GLOMERULAR FILTR. RATE CALC 85.0 mL/min (>90); GLUCOSE,RANDOM 95.0 mg/dL (70-105); SODIUM SERUM 143.0 mmol/L (136-145); UREA NITROGEN, BLOOD 15.0 mg/dL (7-18)
--- NOTE | 2025-03-07 09:21 | CONS ---
HPI: This is a 60-year-old male with a history of persistent atrial fibrillation status post cardioversion x2 in 2019 with subsequent catheter ablation in October 2023, mild obstructive sleep apnea on Zepbound, hypertension, and history of amiodarone related thyroid toxicity (amiodarone discontinued in June 2020). He was admitted 02/16/2025 secondary to AF recurrence as his 1st since catheter ablation/cardioversion in October 2023. He develops symptomatic bradycardia due to metoprolol which was eventually discontinued in August 2024 due to ventricular rates in the 30s to 40s. He underwent successful cardioversion 02/19/2025 but reverted to atrial fibrillation five days later. He began taking metoprolol for rate control and was eventually seen by his primary care physician who directed him to the emergency department due to atrial fibrillation with rapid ventricular response. He was readmitted 03/05/2025 with atypical atrial flutter with a ventricular rate of 110 beats per minute. He is on flecainide 150 mg twice daily and metoprolol tartrate 12.5 mg twice daily. He is currently in atypical atrial flutter with ventricular rates in the 100s. His most recent echocardiogram 02/19/2025 showed an ejection fraction of 45% with mild LVH, moderately dilated left atrium, normal right ventricular systolic function, trace aortic valve regurgitation, mild prolapse of the anterior leaflet of the mitral valve with mild mitral valve regurgitation and trace tricuspid valve regurgitation. Chest x-ray 03/05/2025 is negative for acute findings. White blood count 7.0, hemoglobin 15.9, hematocrit 47.3, platelets 173, creatinine 1.0, potassium 3.8, magnesium 2.40, TSH 2.01. He reports palpitations, fatigue and mild weakness due to the arrhythmia. Patient History: PAST MEDICAL HISTORY: As noted above. SOCIAL HISTORY: Noncontributory. SURGICAL HISTORY: As noted above. Allergies: Coded Allergies: No Known Allergies (Unverified Allergy, Unknown, 02/15/25) Additional RoS: Negative with the exception of HPI Vital Signs Vital Signs 03/06/25 03/07/25 19:45 08:00 Temp 98.6 Pulse 120 Resp 20 B/P (MAP) 110/58 Pulse Ox 98 O2 Delivery Room Air O2 Flow Rate 0 FiO2 21 Appearance: Well dev, well nourished Eyes: EOM Normal Ear/Nose/Mouth/Throat: Landmarks WNL Neck: Symmetric, trach midline Cardiovascular: Abnormal (Irregularly irregular rhythm) Respiratory: Lungs clear Laboratory Tests Test 03/05/25 16:52 03/05/25 16:56 03/05/25 22:00 03/06/25 10:54 Range/Units Urine Color LIGHT-YELLOW YELLOW Urine Appearance CLEAR CLEAR Urine pH 5.0 5.0-8.0 Urine Specific [place] 1.021 1.001-1.031 Urine Protein NEGATIVE NEGATIVE mg/dL Urine Glucose (UA) >=1000 NEGATIVE mg/dL Urine Ketones NEGATIVE NEGATIVE mg/dL Urine Occult Blood NEGATIVE NEGATIVE Urine Nitrate NEGATIVE NEGATIVE Urine Bilirubin NEGATIVE NEGATIVE mg/dL Urine Urobilinogen 0.2 0.2-1.0 mg/dL Urine Leukocyte Esterase NEGATIVE NEGATIVE Steve/uL Urine RBC None 0-1 /HPF Urine WBC 0-1 0-1 /HPF Urine Bacteria None None Seen /HPF White Blood Count 8.2 6.2 4.8-10.8 K/uL Red Blood Count 5.73 5.04 4.50-6.20 MIL/uL Hemoglobin 17.2 15.5 14.0-18.0 g/dL Hematocrit 53.6 46.3 42-54 % Mean Corpuscular Volume 93.5 91.9 79-99 fL Mean Corpuscular Hemoglobin 30.0 30.8 27.0-33.0 pg Mean Corpuscular Hemoglobin Concent 32.1 33.5 32.0-36.0 g/dL Red Cell Distribution Width 13.5 13.6 11.0-15.5 % Platelet Count 199 173 130-400 K/uL Mean Platelet Volume 9.1 9.1 7.5-10.5 fL Immature Granulocyte % (Auto) 0.2 0.3 0-1 % Neutrophils (%) (Auto) 62.0 55.1 40.0-77.0 % Lymphocytes (%) (Auto) 25.3 32.0 21.0-51.0 % Monocytes (%) (Auto) 8.7 7.9 3.0-13.0 % Eosinophils (%) (Auto) 3.1 3.9 0.0-8.0 % Basophils (%) (Auto) 0.7 0.8 0.0-5.0 % Neutrophils # (Auto) 5.1 3.4 1.8-7.7 K/uL Lymphocytes # (Auto) 2.1 2.0 1.0-4.8 K/uL Monocytes # (Auto) 0.7 0.5 0.1-1.0 K/uL Eosinophils # (Auto) 0.25 0.24 0.00-0.70 K/uL Basophils # (Auto) 0.06 0.05 0.00-0.20 K/uL Absolute Immature Granulocyte (auto 0.02 0.02 0-1 K/uL Nucleated Red Blood Cells 0.0 0.0 0.0-0.19 % Sodium Level 145 143 136-145 mmol/L Potassium Level 4.3 4.3 3.5-5.1 mmol/L Chloride Level 106 107 101-111 mmol/L Carbon Dioxide Level 29 29 21-32 mmol/L Blood Urea Nitrogen 22 22 7-18 mg/dL Creatinine 1.0 1.0 0.5-1.3 mg/dL Glomerular Filtration Rate Calc 85 85 >90 mL/min Random Glucose 93 98 70-105 mg/dL Total Calcium 9.3 8.8 8.5-10.1 mg/dL Magnesium Level 2.50 2.40 1.80-2.40 mg/dL Total Creatine Kinase 93 21-232 U/L Troponin I High Sensitivity 10 4-75 ng/L B-Type Natriuretic Peptide 85 0-100 pg/mL Phosphorus Level 3.8 2.5-4.9 mg/dL Thyroid Stimulating Hormone (TSH) 2.01 0.36-3.74 uIU/mL Test 03/07/25 03:59 Range/Units White Blood Count 7.0 4.8-10.8 K/uL Red Blood Count 5.17 4.50-6.20 MIL/uL Hemoglobin 15.9 14.0-18.0 g/dL Hematocrit 47.3 42-54 % Mean Corpuscular Volume 91.5 79-99 fL Mean Corpuscular Hemoglobin 30.8 27.0-33.0 pg Mean Corpuscular Hemoglobin Concent 33.6 32.0-36.0 g/dL Red Cell Distribution Width 13.6 11.0-15.5 % Platelet Count 173 130-400 K/uL Mean Platelet Volume 9.0 7.5-10.5 fL Nucleated Red Blood Cells 0.0 0.0-0.19 % Sodium Level 143 136-145 mmol/L Potassium Level 3.8 3.5-5.1 mmol/L Chloride Level 106 101-111 mmol/L Carbon Dioxide Level 27 21-32 mmol/L Blood Urea Nitrogen 15 7-18 mg/dL Creatinine 1.0 0.5-1.3 mg/dL Glomerular Filtration Rate Calc 85 >90 mL/min Random Glucose 95 70-105 mg/dL Total Calcium 8.6 8.5-10.1 mg/dL ASSESSMENT: 1. Persistent atrial fibrillation/atypical atrial flutter. 2. Mild LV dysfunction. 3. Mild obstructive sleep apnea. 4. History of symptomatic bradycardia on metoprolol succinate. PLAN: 1. He recently underwent cardioversion 02/19/2025 due to persistent atrial fibrillation and reverted back to atrial fibrillation five days later. At this point flecainide has failed to maintain sinus rhythm. 2. We will discontinue flecainide and transition to Multaq 400 mg twice daily. 3. Plan for cardioversion with anesthesia in the a.m. after he receives his 3rd dose of Multaq. 4. Due to history of sinus bradycardia while on metoprolol succinate, we will discontinue metoprolol tartrate 12.5 mg twice daily and use IV metoprolol 5 mg as needed for heart rates of 110 or greater. 5. On discharge if he reverts to atrial fibrillation, recommend short-acting verapamil 40 mg for rate control. SHADY HART PAC Mar 07, 2025 09:20
[2025-03-07] MEDS: DRONEDARONE HYDROCHLORIDE 400 MG TABLET PO SCH (09:29)
[2025-03-07] MEDS: EMPAGLIFLOZIN 10MG TABLET PO SCH (09:59)
--- NOTE | 2025-03-07 12:25 | PN ---
[facility] PROGRESS NOTE Date of Service: Mar 07, 2025 Time of Service: 8:10 SUBJECTIVE: Mr. Kumar is a 60 year male that was seen and examined today on 03/05/2025. Patient is a good historian of personal health. Patient states that he came to the emergency department with a chief complaint of palpitations. Onset was five days ago. Location is middle of chest. Duration is on and off. Character is described as fluttering in the chest. There was no alleviating factors. Symptoms are aggravated with physical activity. Patient reports associated dizziness and shortness of breaths. Today palpitation resolved with 2 mg of diazepam vape. Patient was seen on 02/19/2025 with a similar presentation and was followed by cardiology service. They recommended flecainide 150 mg by mouth twice daily and metoprolol 12.5 mg by mouth twice daily. Patient also has a 2D echo that showed LVEF 45% on 02/18/2025. On previous admission patient was cardioversion with sedation. Patient also has received an ablation in the past. Patient also reports that after he was discharged with the hospital he attempted to follow up with the Cardiology office for evaluation by EP however they told him there was no appointments available until April. 03/06/2025 During my time of evaluation, patient was in irregularly irregular rhythm, possibly atrial fibrillation. He did not have any tele monitor at this moment. Patient stated that he had these symptoms for the past 5 days and he was waking up at night short of breath with palpitation and his heart rate above 100 consistently. He denied any swelling in legs. He stated taking flecainide daily and was compliant with the medication. Currently, he is vitally stable with blood pressure 109/63 with heart rate elevated at 120. BNP is unremarkable, 85. Cardiology consult has been placed. We will follow up with their recommendations. 03/07/2025 Patient was seen and evaluated at bedside. He continues to be in irregularly irregular rhythm. Patient states that he woke up at night again with palpitation. He is hemodynamically stable with no shortness of breath or chest pain. He had amiodarone induced thyroid toxicity in the past for which TSH was done which showed 2.01 today. He was seen by Cardiology which started him on dronedarone with plans of cardioversion in the morning. REVIEW OF SYSTEMS CONSTITUTIONAL: Complains of generalized weakness secondary to palpitations Denies fevers, chills, or night sweats. No unintentional weight loss reported. NEUROLOGICAL: Denies headache, amaurosis fugax, motor weakness, sensory d eficit, vertigo/spinning sensation, gait abnormalities, or tremors. ENT: No hearing loss, otalgia, otorrhea, rhinitis, rhinorrhea, hoarseness, or sore throat. CARDIOVASCULAR: Palpitations, dyspnea on exertion Denies any exertional angina or chest pain. PULMONARY: Shortness of breath Denies any shortness of breath, cough, phlegm/sputum, hemoptysis, pleuritic chest pain. SLEEP: States waking up at night with shortness of breath and palpitation. Denies morning headaches, daytime somnolence or napping. Denies difficulty falling asleep, staying asleep, waking from sleep. Denies knowledge of snoring. GASTROINTESTINAL: Denies any type of dysphagia to either liquids or solids. Denies nausea, vomiting, pyrosis, early satiety, abdominal pain, diarrhea, const ipation, or changes in stool consistency or caliber. Denies coffee-ground emesis, hematemesis, hematochezia, or melanotic stools. GENITOURINARY: Denies frequency, urgency, nocturia, hematuria or incontinence, Low urinary stream, straining to void, urinary intermittency or hesitancy, splitting of the voiding stream, terminal dribbling. DERMATOLOGIC: Denies rashes or pruritus. PHYSICAL EXAM GENERAL APPEARANCE: The patient is awake, alert, and oriented. NEUROLOGICAL: Cranial nerves grossly intact. Motor is 5/5 in bilateral upper and lower extremities proximal to distal. No sensory deficits. HEENT: Face is symmetric. Pupils are equal and reactive. Extraocular movements are intact. NECK: Supple. No JVD. CHEST: Normal chest expansion. LUNGS: Absence of any rales, rhonchi or any wheezing. CARDIOVASCULAR: Irregularly irregular rhythm. ABDOMEN: Soft, nontender, and nondistended. : Deferred. No Stein. EXTREMITIES: Non-edematous and not cyanotic. No clubbing. SKIN: No skin breakdown. Vital Signs (last 8hr) Date Time Temp Pulse Resp B/P (MAP) Pulse Ox O2 Delivery O2 Flow Rate FiO2 03/07/25 08:00 98.6 120 20 110/58 98 Room Air LABS: Laboratory: Test 03/07/25 03:59 03/06/25 10:54 03/05/25 22:00 03/05/25 16:56 Range/Units White Blood Count 7.0 4.8-10.8 K/uL Red Blood Count 5.17 4.50-6.20 MIL/uL Hemoglobin 15.9 14.0-18.0 g/dL Hematocrit 47.3 42-54 % Mean Corpuscular Volume 91.5 79-99 fL Mean Corpuscular Hemoglobin 30.8 27.0-33.0 pg Mean Corpuscular Hemoglobin Concent 33.6 32.0-36.0 g/dL Red Cell Distribution Width 13.6 11.0-15.5 % Platelet Count 173 130-400 K/uL Mean Platelet Volume 9.0 7.5-10.5 fL Nucleated Red Blood Cells 0.0 0.0-0.19 % Sodium Level 143 136-145 mmol/L Potassium Level 3.8 3.5-5.1 mmol/L Chloride Level 106 101-111 mmol/L Carbon Dioxide Level 27 21-32 mmol/L Blood Urea Nitrogen 15 7-18 mg/dL Creatinine 1.0 0.5-1.3 mg/dL Glomerular Filtration Rate Calc 85 >90 mL/min Random Glucose 95 70-105 mg/dL Total Calcium 8.6 8.5-10.1 mg/dL Thyroid Stimulating Hormone (TSH) 2.01 # 0.36-3.74 uIU/mL Immature Granulocyte % (Auto) 0.3 0-1 % Neutrophils (%) (Auto) 55.1 40.0-77.0 % Lymphocytes (%) (Auto) 32.0 21.0-51.0 % Monocytes (%) (Auto) 7.9 3.0-13.0 % Eosinophils (%) (Auto) 3.9 0.0-8.0 % Basophils (%) (Auto) 0.8 0.0-5.0 % Neutrophils # (Auto) 3.4 1.8-7.7 K/uL Lymphocytes # (Auto) 2.0 1.0-4.8 K/uL Monocytes # (Auto) 0.5 0.1-1.0 K/uL Eosinophils # (Auto) 0.24 0.00-0.70 K/uL Basophils # (Auto) 0.05 0.00-0.20 K/uL Absolute Immature Granulocyte (auto 0.02 0-1 K/uL Phosphorus Level 3.8 2.5-4.9 mg/dL Magnesium Level 2.40 1.80-2.40 mg/dL Total Creatine Kinase 93 # 21-232 U/L Troponin I High Sensitivity 10 4-75 ng/L B-Type Natriuretic Peptide 85 0-100 pg/mL Test 03/05/25 16:52 Range/Units Urine Color LIGHT-YELLOW YELLOW Urine Appearance CLEAR CLEAR Urine pH 5.0 5.0-8.0 Urine Specific [place] 1.021 1.001-1.031 Urine Protein NEGATIVE NEGATIVE mg/dL Urine Glucose (UA) >=1000 H NEGATIVE mg/dL Urine Ketones NEGATIVE NEGATIVE mg/dL Urine Occult Blood NEGATIVE NEGATIVE Urine Nitrate NEGATIVE NEGATIVE Urine Bilirubin NEGATIVE NEGATIVE mg/dL Urine Urobilinogen 0.2 0.2-1.0 mg/dL Urine Leukocyte Esterase NEGATIVE NEGATIVE Steve/uL Urine RBC None 0-1 /HPF Urine WBC 0-1 0-1 /HPF Urine Bacteria None None Seen /HPF Current Medications Medications (Trade) Dose Ordered Sig/[place] Route PRN Reason Start Time Stop Time Status Last Admin Dose Admin Acetaminophen (TYLenol 325MG TAB) 650 mg Q6H PRN PO TEMPERATURE GREATER THAN 101.5 03/05/25 21:30 04/04/25 21:29 Apixaban (EliquIS) 5 mg BID PO 03/05/25 21:00 04/04/25 20:59 03/07/25 09:29 5 MG Atorvastatin Calcium (LIPItor 40MG) 40 mg HS PO 03/06/25 21:00 04/05/25 20:59 03/06/25 21:05 40 MG Dronedarone (Multaq) 400 mg BID PO 03/07/25 09:30 04/06/25 09:29 03/07/25 09:29 400 MG Empaglifozin (Jardiance 10mg) 10 mg DAILY PO 03/07/25 10:00 04/06/25 09:59 03/07/25 09:59 10 MG Famotidine (Pepcid 20mg Tab) 20 mg DAILY PO 03/06/25 09:00 04/05/25 08:59 03/07/25 09:29 20 MG Flecainide Acetate (Tambocor) 150 mg BID PO 03/05/25 21:00 10/9/25 08:44 DC 03/06/25 21:06 150 MG Hydralazine HCl (APRESOLine 20MG INJ) 10 mg Q6H PRN IV For:SBP above 160;DBP above 90 03/05/25 21:30 04/04/25 21:29 Lactulose (Constulose 20gm/ 30ml Udcup) 20 gm BID PRN PO CONSTIPATION 03/05/25 21:30 04/04/25 21:29 Metoprolol Tartrate (loprESSOR) 5 mg Q5M PRN IV AFIB RVR HR >120 BPM 03/05/25 20:30 03/07/25 09:16 DC Metoprolol Tartrate (loprESSOR) 5 mg Q5M PRN IV AFIB RVR HR >110 BPM 03/07/25 09:30 04/06/25 09:29 Metoprolol Tartrate (loprESSOR) 12.5 mg BID PO 03/06/25 09:00 03/07/25 09:13 DC 03/06/25 21:05 12.5 MG Metoprolol Tartrate (loprESSOR) 100 mg BID PO 03/05/25 21:00 03/05/25 20:16 DC Morphine Sulfate (morPHINE 4MG SYG) 2 mg Q4H PRN IVP SEVERE PAIN (7-10) 03/05/25 21:30 03/12/25 21:29 Ondansetron HCl (zoFRAN 4MG INJ) 4 mg Q6H PRN IV NAUSEA/VOMITING 03/05/25 21:30 04/04/25 21:29 Pantoprazole Sodium (PROTonix 40MG TAB) 40 mg DAILY PO 03/07/25 09:00 03/07/25 08:32 DC DIAGNOSTICS / RADIOLOGY: PATIENT: ROXANA KUMAR MR#: [id number] : 1965 SEX: M AGE: 60 LOCATION: [facility] ORDER 45 STATUS: REG ER REPORT#: [id number] SERVICE 44 REASON: palpitations ORDERING PHYSICIAN: PAPITO JOSE MD PROCEDURE: CXR1VW - CHEST 1VW EXAM: XR Chest, 1 View. CLINICAL HISTORY: 60-year-old male with palpitations, negative. COMPARISON: Similar to prior. XR Chest 13:37 02/24/25 FINDINGS: LUNGS: The lungs are clear. No consolidation. PLEURAL SPACES: No pleural effusion or pneumothorax. HEART: The heart size is normal. BONES: No acute osseous abnormality. IMPRESSION: 1. No acute findings. 2. Similar to prior XR Chest 13:37 02/24/25 /[place] DICTATED BY: KUMAR GODINEZ MD DATE: 03/05/251857 ELECTRONICALLY SIGNED BY: KUMAR GODINEZ MD DATE: 03/05/251857 ASSESSMENT: Atrial fibrillation with rapid ventricular rate vs atrial flutter Other problems: Hypertension, Hyperlipidemia, obstructive sleep apnea, History of amiodarone related thyroid toxicity, Mild LV dysfunction, History of symptomatic bradycardia on metoprolol succinat PLAN: Atrial fibrillation with rapid ventricular rate versus atrial flutter Patient presented with irregularly irregular rhythm and EKG on admission showed atrial flutter with a hr of 110 bpm. BNP is unremarkable 85. 2D echo on 02/18/2025 with an LVEF of 45% - As per Cardiology, flecainide has been discontinued and patient is started on Multaq 400 mg twice daily. - Plan for cardioversion with anesthesia in the a.m. after he receives his 3rd dose of Multaq. - Due to history of sinus bradycardia while on metoprolol succinate, discontinue metoprolol tartrate 12.5 mg twice daily and use IV metoprolol 5 mg as needed for heart rates of 110 or greater. - On discharge if he reverts to atrial fibrillation, recommend short-acting verapamil 40 mg for rate control. - TSH is 2.01, 03/07/2025. - Continue Eliquis - Follow up with further Cardiology recommendations Hyperlipidemia: Atorvastatin 40 mg GI prophylaxis: Famotidine 20 mg daily ATTESTATION BY PHYSICIAN I have seen and examined the patient. I reviewed the documentation, medical decision making, and treatment plan as noted by the resident provider above. I agree with the findings and plan of care. CHECO COOLEY MD, MUHAMMAD H MD Mar 07, 2025 12:25
--- NOTE | 2025-03-07 14:35 | NUR ---
MPOA sw assisted pt with completing MPOA. Pt given original and 2 copies, another copy placed in pt's chart.
[2025-03-07 18:11] LABS: NUCLEATED RED BLOOD CELLS 0.0 % (0.0-0.19); PLATELET COUNT (AUTO) 185.0 K/uL (130-400); RED BLOOD CELL COUNT(AUTO) 5.39 MIL/uL (4.50-6.20); RED CELL DISTRIBUTION WIDTH 13.8 % (11.0-15.5); WHITE BLOOD COUNT (AUTO) 6.4 K/uL (4.8-10.8)
[2025-03-07 18:19] LABS: CREATININE 1.0 mg/dL (0.5-1.3); GLOMERULAR FILTR. RATE CALC 85.0 mL/min (>90); GLUCOSE,RANDOM 103.0 mg/dL (70-105); SODIUM SERUM 142.0 mmol/L (136-145); UREA NITROGEN, BLOOD 14.0 mg/dL (7-18)
--- NOTE | 2025-03-07 20:59 | PN ---
Rate is controlled and fatigue and shortness of breath have improved. Patient is optimistic, now that he feels better. According to the patient there is a plan for cardioversion tomorrow; I support that effort. Patient is open to the idea of an ablation in the near future as well. Vitals/Labs Vital Signs Date Time Temp Pulse Resp B/P (MAP) Pulse Ox O2 Delivery O2 Flow Rate FiO2 03/07/25 19:21 97.9 66 16 118/46 100 Room Air 03/07/25 08:00 0 21 Laboratory Tests 03/07/25 03:59 03/07/25 18:06 Medications Current Medications Diazepam 2 mg ONCE ONCE PO Last administered on 03/05/25at 18:11; Start 03/05/25 at 18:00; Stop 03/05/25 at 18:01; Status DC Metoprolol Tartrate 100 mg BID PO; Start 03/05/25 at 21:00; Stop 03/05/25 at 20:16; Status DC Apixaban 5 mg BID PO Last administered on 03/07/25at 09:29; Start 03/05/25 at 21:00; Stop 04/04/25 at 20:59 Flecainide Acetate 150 mg BID PO Last administered on 03/06/25at 21:06; Start 03/05/25 at 21:00; Stop 03/07/25 at 08:44; Status DC Pharmacy Profile Note 1 each ONCE ONCE MISC; Start 03/05/25 at 20:30; Stop 03/05/25 at 20:31; Status DC Metoprolol Tartrate 5 mg Q5M PRN IV; Start 03/05/25 at 20:30; Stop 03/07/25 at 09:16; Status DC Acetaminophen 650 mg Q6H PRN PO; Start 03/05/25 at 21:30; Stop 04/04/25 at 21:29 Atorvastatin Calcium 40 mg HS PO Last administered on 03/06/25at 21:05; Start 03/06/25 at 21:00; Stop 04/05/25 at 20:59 Famotidine 20 mg DAILY PO Last administered on 03/07/25at 09:29; Start 03/06/25 at 09:00; Stop 04/05/25 at 08:59 Hydralazine HCl 10 mg Q6H PRN IV; Start 03/05/25 at 21:30; Stop 04/04/25 at 21:29 Lactulose 20 gm BID PRN PO; Start 03/05/25 at 21:30; Stop 04/04/25 at 21:29 Morphine Sulfate 2 mg Q4H PRN IVP; Start 03/05/25 at 21:30; Stop 03/12/25 at 21:29 Ondansetron HCl 4 mg Q6H PRN IV; Start 03/05/25 at 21:30; Stop 04/04/25 at 21:29 Metoprolol Tartrate 12.5 mg BID PO Last administered on 03/06/25at 21:05; Start 03/06/25 at 09:00; Stop 03/07/25 at 09:13; Status DC Levothyroxine Sodium 75 mcg STK-MED ONCE .ROUTE; Start 03/07/25 at 05:27; Stop 03/07/25 at 05:27; Status DC Pantoprazole Sodium 40 mg DAILY PO; Start 03/07/25 at 09:00; Stop 03/07/25 at 08:32; Status DC Dronedarone 400 mg BID PO Last administered on 03/07/25at 09:29; Start 03/07/25 at 09:30; Stop 04/06/25 at 09:29 Metoprolol Tartrate 5 mg Q5M PRN IV; Start 03/07/25 at 09:30; Stop 04/06/25 at 09:29 Empaglifozin 10 mg DAILY PO Last administered on 03/07/25at 09:59; Start 03/07/25 at 10:00; Stop 04/06/25 at 09:59 CARL SOUZA MD Mar 07, 2025 20:59
[2025-03-08 03:18] VITALS: BP 102/52; PULSE 106; RESP 16; TEMP 97.6
--- NOTE | 2025-03-08 07:36 | PN ---
Paroxysmal atrial fibrillation Hypertension Obstructive sleep apnea Mild chronic systolic heart failure with 45% ejection fraction Previous cardioversions, no long-term success, considered for cardioversion today and eventual AFib ablation Rate is controlled and symptoms of fatigue and shortness of breath have improved. Likely had mild heart failure on presentation while in atrial fibrillation with rapid ventricular response. Currently no JVD, no rales, nonlabored respiration, normal S1 and S2, irregular rhythm. Dr. Vivas will cardiovert the patient today and he will decide whether to discharge same day or observe. I would anticipate the patient to be discharged today or tomorrow with follow-up by Dr. Krueger and myself after discharge. Vitals/Labs Vital Signs Date Time Temp Pulse Resp B/P (MAP) Pulse Ox O2 Delivery O2 Flow Rate FiO2 03/08/25 03:18 97.5 106 16 102/52 95 Room Air 03/07/25 19:50 0 21 Laboratory Tests 03/07/25 18:06 Medications Current Medications Diazepam 2 mg ONCE ONCE PO Last administered on 03/05/25at 18:11; Start 03/05/25 at 18:00; Stop 03/05/25 at 18:01; Status DC Metoprolol Tartrate 100 mg BID PO; Start 03/05/25 at 21:00; Stop 03/05/25 at 20:16; Status DC Apixaban 5 mg BID PO Last administered on 03/07/25at 21:00; Start 03/05/25 at 21:00; Stop 04/04/25 at 20:59 Flecainide Acetate 150 mg BID PO Last administered on 03/06/25at 21:06; Start 03/05/25 at 21:00; Stop 03/07/25 at 08:44; Status DC Pharmacy Profile Note 1 each ONCE ONCE [facility] [place]; Start 03/05/25 at 20:30; Stop 03/05/25 at 20:31; Status DC Metoprolol Tartrate 5 mg Q5M PRN IV; Start 03/05/25 at 20:30; Stop 03/07/25 at 09:16; Status DC Acetaminophen 650 mg Q6H PRN PO; Start 03/05/25 at 21:30; Stop 04/04/25 at 21:29 Atorvastatin Calcium 40 mg HS PO Last administered on 03/07/25at 21:00; Start 03/06/25 at 21:00; Stop 04/05/25 at 20:59 Famotidine 20 mg DAILY PO Last administered on 03/07/25at 09:29; Start 03/06/25 at 09:00; Stop 04/05/25 at 08:59 Hydralazine HCl 10 mg Q6H PRN IV; Start 03/05/25 at 21:30; Stop 04/04/25 at 21:29 Lactulose 20 gm BID PRN PO; Start 03/05/25 at 21:30; Stop 04/04/25 at 21:29 Morphine Sulfate 2 mg Q4H PRN IVP; Start 03/05/25 at 21:30; Stop 03/12/25 at 21:29 Ondansetron HCl 4 mg Q6H PRN IV; Start 03/05/25 at 21:30; Stop 04/04/25 at 21:29 Metoprolol Tartrate 12.5 mg BID PO Last administered on 03/06/25at 21:05; Start 03/06/25 at 09:00; Stop 03/07/25 at 09:13; Status DC Levothyroxine Sodium 75 mcg STK-MED ONCE .ROUTE; Start 03/07/25 at 05:27; Stop 03/07/25 at 05:27; Status DC Pantoprazole Sodium 40 mg DAILY PO; Start 03/07/25 at 09:00; Stop 03/07/25 at 08:32; Status DC Dronedarone 400 mg BID PO Last administered on 03/07/25at 21:00; Start 03/07/25 at 09:30; Stop 04/06/25 at 09:29 Metoprolol Tartrate 5 mg Q5M PRN IV; Start 03/07/25 at 09:30; Stop 04/06/25 at 09:29 Empaglifozin 10 mg DAILY PO Last administered on 03/07/25at 09:59; Start 03/07/25 at 10:00; Stop 04/06/25 at 09:59 CARL SOUZA MD Mar 08, 2025 07:36
[2025-03-08 07:51] VITALS: BP 102/55; PULSE 101; RESP 20; TEMP 98.7
[2025-03-08 08:10] LABS: CREATININE 1.1 mg/dL (0.5-1.3); GLOMERULAR FILTR. RATE CALC 76.0 mL/min (>90); GLUCOSE,RANDOM 93.0 mg/dL (70-105); SODIUM SERUM 141.0 mmol/L (136-145); UREA NITROGEN, BLOOD 14.0 mg/dL (7-18)
[2025-03-08 08:30] VITALS: O2SAT 97
--- NOTE | 2025-03-08 08:56 | PN ---
This is a 60-year-old male with a history of persistent atrial fibrillation status post cardioversion x2 in 2019 with subsequent catheter ablation in October 2023, mild obstructive sleep apnea on Zepbound, hypertension, and history of amiodarone related thyroid toxicity (amiodarone discontinued in June 2020). He underwent cardioversion 02/19/2025 due to recurrent atrial fibrillation. He reverted to atrial fibrillation 02/24/2025 and was admitted 03/05/2025 due to rapid ventricular response. Yesterday flecainide was discontinued and he was started on Multaq 400 mg twice daily. He is currently in atrial fibrillation with ventricular rates in the 80s to 90s. White blood count 6.4, hemoglobin 16.5, hematocrit 49.0, platelets 185, creatinine 1.1, potassium 4.5. He offers up no new cardiac complaints this morning. ASSESSMENT: 1. Persistent atrial fibrillation/atypical atrial flutter. 2. Mild LV dysfunction. 3. Mild obstructive sleep apnea. 4. History of symptomatic bradycardia on metoprolol succinate. PLAN: 1. He recently underwent cardioversion 02/19/2025 due to persistent atrial fibrillation and reverted back to atrial fibrillation five days later. Yesterday he was started on Multaq 400 mg twice daily and should receive his 3rd dose this morning. 2. Plan for cardioversion this morning. 3. Anticipate discharge home after undergoing cardioversion. 4. He will be prescribed short-acting verapamil 40 mg for rate control if he reverts to atrial fibrillation upon discharge. Vitals/Labs Vital Signs Date Time Temp Pulse Resp B/P (MAP) Pulse Ox O2 Delivery O2 Flow Rate FiO2 03/08/25 07:51 98.8 101 20 102/55 97 Room Air 03/07/25 19:50 0 21 Laboratory Tests 03/07/25 18:06 03/08/25 07:47 SHADY HART Mar 08, 2025 08:56
[2025-03-08] MEDS ORDERED: DRON400T7 PO (08:59)
[2025-03-08] MEDS ORDERED: VERA40TA5 PO (08:59)
[2025-03-08 11:00] VITALS: BP 112/68; PULSE 65; RESP 20; TEMP 98.7
--- NOTE | 2025-03-08 15:35 | NUR ---
Patient was discharged, all discharge documentation was taken by patient. Patient informed to follow up with primary care provider in 3-5 days [address] to [address] Dr[address] Vivas's office for follow up appointment. Several attempts made to make appointment by [facility], no answer. New script sent to [facility] in [place]. IV and telemetry pack were removed, patient ambulated out of facility accompanied by [facility].
--- NOTE | 2025-03-08 17:39 | DS ---
Discharge Summary Hospital Course Summary: This is a 60-year-old male with a history of persistent atrial fibrillation status post cardioversion x2 in 2019 with subsequent catheter ablation in October 2023, mild obstructive sleep apnea on Zepbound, hypertension, and history of amiodarone related thyroid toxicity. He presented to the emergency department with a chief complaint of palpitations on 03/05/2025. On admission, ECG demonstrated atypical atrial flutter with a ventricular rate of 110 beats per minute. He was taking flecainide 150 mg twice daily and metoprolol tartrate 12.5 mg twice daily.His most recent echocardiogram 02/19/2025 showed an ejection fraction of 45% with mild LVH, moderately dilated left atrium, normal right v entricular systolic function, trace aortic valve regurgitation, mild prolapse of the anterior leaflet of the mitral valve with mild mitral valve regurgitation and trace tricuspid valve regurgitation. Chest x-ray 03/05/2025 was negative for acute findings. His BNP (85) and TSH (2.01) were unremarkable. Cardiology consult was placed and patient was seen by Dr. Vivas. He was start ed on Multaq 400 mg twice daily and after his his 3rd dose, he underwent successful cardioversion. He is being discharged with instructions to follow up with Dr. Vivas within 2 weeks and with PCP within 3-4 days upon discharge. President And Cmo(s): [facility] CARDIOLOGY CONSULTATION REPORT Cardiology consultation note dictated for Carl Souza MD Date Patient Seen: Mar 06, 2025 Requesting Physician: Rashi Kline MD Reason for Consultation: AFib with RVR History of Present Illness: This is a 60-year-old male with a past medical history paroxysmal atrial fibrillation s/p cardioversion x2 in 2019 with subsequent catheter ablation in 10/2023, s/p successful cardioversion for atrial fibrillation on 02/19/2025, on chronic anticoagulation Eliquis, 2D echo on 02/18/2025 with an LVEF of 45% with a moderately dilated left atrium, mild obstructive sleep apnea on Zepbound, history of amiodarone related thyroid toxicity, and hypertension presented to the ED with complaints of palpitations for 5d. Cardiology has been consulted for atrial fibrillation with rapid ventricular response. The patient endorsed general body weakness, palpitations, shortness of breath, and dizziness for approximately 5 days. EKG on admission demonstrated atrial flutter 2:1 with a hr of 110bpm. The patient underwent a successful cardioversion on 02/19/2025 but had an ED visit on 02/24/2025 due to palpitations and was found to be in atrial fibrillation. He was recommended to take Metoprolol tartrate 25 mg b.i.d. for 5 days and to go to the [facility] on 02/25/2025 at [address] Kohli. He admitted to taking metoprolol succinate 100 mg daily for 5 days prior to admission from an old prescription bottle due to heart rates reaching 130's at home, but was without resolution. Impression and Plan: Atrial fibrillation with rapid ventricular response Paroxysmal atrial fibrillation s/p cardioversion x2 in 2019 with subsequent catheter ablation in 10/2023 S/p successful cardioversion for atrial fibrillation on 02/19/2025 On chronic anticoagulation Eliquis 2D echo on 02/18/2025 with an LVEF of 45% Mild obstructive sleep apnea on Zepbound History of amiodarone related thyroid toxicity Hypertension Atrial fibrillation with rapid ventricular response EKG on admission demonstrated atrial flutter with a hr of 110bpm Current telemetry demonstrating atrial fibrillation with a heart rate of 108bpm -Continue Flecainide 150 mg b.i.d., Lopressor to 12.5mg bid, hold for hr <50bpm, and Eliquis 5 mg b.i.d. -Utilize Lopressor IV as needed for hr > 120bpm KAMI SANCHES Mar 06, 2025 09:28 CARL SOUZA MD Mar 07, 2025 07:13 Electronically Signed by: KAMI SANCHES [facility] 1050 Electronically Co-Signed by: CARL SOUZA MD03/07/25 0713 Progress Notes: 03/08/2025 PLAN: 1. He recently underwent cardioversion 02/19/2025 due to persistent atrial fibrillation and reverted back to atrial fibrillation five days later. Yesterday he was started on Multaq 400 mg twice daily and should receive his 3rd dose this morning. 2. Plan for cardioversion this morning. 3. Anticipate discharge home after undergoing cardioversion. 4. He will be prescribed short-acting verapamil 40 mg for rate control if he reverts to atrial fibrillation upon discharge. SHADY HART Mar 08, 2025 08:56 Procedure(s): PATIENT: ROXANA KUMAR MR#: [id number] : 1965 SEX: M AGE: 60 LOCATION: [facility] ORDER 45 STATUS: REG ER REPORT#: [id number] SERVICE 44 REASON: palpitations ORDERING PHYSICIAN: PAPITO JOSE MD PROCEDURE: CXR1VW - CHEST 1VW EXAM: XR Chest, 1 View. CLINICAL HISTORY: 60-year-old male with palpitations, negative. COMPARISON: Similar to prior. XR Chest 13:37 02/24/25 FINDINGS: LUNGS: The lungs are clear. No consolidation. PLEURAL SPACES: No pleural effusion or pneumothorax. HEART: The heart size is normal. BONES: No acute osseous abnormality. IMPRESSION: 1. No acute findings. 2. Similar to prior XR Chest 13:37 02/24/25 /[place] DICTATED BY: KUMAR GODINEZ MD DATE: 03/05/251857 ELECTRONICALLY SIGNED BY: KUMAR GODINEZ MD DATE: 03/05/251857 Assessment/Plan: ASSESSMENT: Atrial fibrillation with rapid ventricular rate vs atrial flutter History of symptomatic bradycardia on metoprolol succinate History of amiodarone related thyroid toxicity Mild LV dysfunction obstructive sleep apnea Hyperlipidemia Hypertension Discharge Instructions: Please follow up with Dr. Vivas within 2 weeks upon discharge. Please call office for follow up appointment. Please follow up with PCP within 3-4 days upon discharge. Please take Verapamil as prescribed only if heart rate > 100. Home Medications: Active Scripts Verapamil HCl (Verapamil HCl) 40 Mg Tablet, 1 TAB PO BID for HR > 100 for 30 Days, #60 TAB 0 Refills Prov:SHADY HART PAC 03/08/25 Dronedarone Hydrochloride (Multaq) 400 Mg Tablet, 400 MG PO BID, #60 TAB 3 Refills Prov:SHADY HART PAC 03/08/25 Reported Medications Rosuvastatin Calcium (Rosuvastatin Calcium) 10 Mg Tablet, 1 TAB PO DAILY for 30 Days, #30 TAB 0 Refills 02/16/25 Empagliflozin (Jardiance) 10 Mg Tablet, 1 TAB PO DAILY for 30 Days, #30 TAB 0 Refills 02/16/25 Apixaban (Eliquis) 5 Mg Tablet, 1 TAB PO BID for 30 Days, #60 TAB 0 Refills 02/16/25 Discontinued Reported Medications Flecainide Acetate (Flecainide Acetate) 150 Mg Tablet, 1 TAB PO BID for 30 Days, #60 TAB 0 Refills 02/16/25 Discontinued Scripts Metoprolol Tartrate (Metoprolol Tartrate) 25 Mg Tablet, 1 TAB PO BID for 5 Days, #10 TAB 0 Refills Prov:PAPITO JOSE MD 02/24/25 New Medications: Verapamil HCl (Verapamil HCl) 40 Mg Tablet 1 TAB PO BID for HR > 100 for 30 Days, #60 TAB 0 Refills Dronedarone Hydrochloride (Multaq) 400 Mg Tablet 400 MG PO BID, #60 TAB 3 Refills Continued Medications: Apixaban (Eliquis) 5 Mg Tablet 1 TAB PO BID for 30 Days, #60 TAB 0 Refills Empagliflozin (Jardiance) 10 Mg Tablet 1 TAB PO DAILY for 30 Days, #30 TAB 0 Refills Rosuvastatin Calcium (Rosuvastatin Calcium) 10 Mg Tablet 1 TAB PO DAILY for 30 Days, #30 TAB 0 Refills Discontinued Medications: Flecainide Acetate (Flecainide Acetate) 150 Mg Tablet 1 TAB PO BID for 30 Days, #60 TAB 0 Refills Metoprolol Tartrate (Metoprolol Tartrate) 25 Mg Tablet 1 TAB PO BID for 5 Days, #10 TAB 0 Refills Time spent arranging discharge: 31-60 minutes ATTESTATION BY PHYSICIAN I have seen and examined the patient. I reviewed the documentation, medical d ecision making, and treatment plan as noted by the resident provider above. I agree with the findings and plan of care. RASHI KLINE MD, MUHAMMAD H MD Mar 08, 2025 17:39
--- NOTE | 2025-03-09 03:06 | EKG ---
[facility] Test Date: 2025-03-08 Test Time: 11:21:54 Pat Name: ROXANA KUMAR Department: [facility] Room: 232 1 Gender: M Order Processing Manager: SONAL : 1965 Requested By: TILA MARROQUIN Order Number: [id number] Reading MD: Sulaiman Lauren Measurements Intervals [place] Rate: 50 P: 65 LA: 164 QRS: -2 QRSD: 110 T: 102 QT: 468 QTc: 426 Interpretive Statements Sinus bradycardia Abnormal QRS-T angle, consider primary T wave abnormality Compared to ECG 03/05/2025 16:36:07 T-wave abnormality now present Intraventricular conduction delay no longer present Prolonged QT interval no longer present Electronically Signed On 03-10-2025 16:05:24 CDT by Sulaiman Lauren Please click the below link to view image of tracing.
== END 2025-03-08 15:35 | disposition home or self-care (01) | DRG 309 ==
LOC: EDH 16:29 → EDHIP 20:12 → 2AH 21:11
PROVIDERS: ADMIT Internal Medicine; ATTEND Internal Medicine
DX: I48.19 Other persistent atrial fibrillation (principal); I50.20 Unspecified systolic (congestive) heart failure; I48.4 Atypical atrial flutter; G47.33 Obstructive sleep apnea (adult) (pediatric); E78.00 Pure hypercholesterolemia, unspecified; Z51.5 Encounter for palliative care; Z79.01 Long term (current) use of anticoagulants; Z79.84 Long term (current) use of oral hypoglycemic drugs; Z79.899 Other long term (current) drug therapy; I11.0 Hypertensive heart disease with heart failure
CPT/HCPCS: 36415; 71045; 80048; 81001; 82550; 83735; 83880; 84100; 84443; 84484; 85025; 85027; 93005; 99285; G0378; J2704; J3490

== ENCOUNTER → 2025-04-15 | Outpatient (CLI) | payer BC ==
[~2025-04-15] MED LIST changes: +DRON400T7 PO; -FLEC150T2 PO; +IOHEXOL 350 MG/ML 100ML INFUS..BTL IV ONE; -METO25TA6 PO; +VERA40TA5 PO
--- NOTE | 2025-04-16 02:55 | HMCIMG ---
EXAM: CTA Chest with Intravenous Contrast CLINICAL HISTORY: Dilated cardiomyopathy, atrial fibrillation. TECHNIQUE: Axial CTA images of the chest with intravenous contrast. Three-dimensional MIP/volume rendered reformations were performed. Dose reduction technique was used including one or more of the following: automated exposure control, adjustment of mA and kV according to patient size, and/or iterative reconstruction. Total exam DLP is 2030. CONTRAST: With; COMPARISON: Prior chest radiograph dated 03/06/2020. FINDINGS: PULMONARY ARTERIES: The opacification of the pulmonary arteries is suboptimal. In the visualized extent, there is no obvious intraluminal filling defect suspicious for PE. AORTA: Minimal atheromatous calcification of the aortic arch. The aortic arch, the ascending aorta, and the descending thoracic aorta show unremarkable appearance without aneurysm or dissection. LUNGS: The lungs are clear. No pulmonary mass. No focal airspace consolidation. PLEURAL SPACES: No pleural effusion. No pneumothorax. HEART AND MEDIASTINUM: There are mitral and aortic valve annulus calcifications. Minimal coronary arterial calcifications are present. There is enlargement of the left atrium with splaying of the lizbet. No filling defects in the lumen of the left atrium or the left ventricle. No cardiomegaly. No significant pericardial effusion. LYMPH NODES: No lymphadenopathy. BONES: There are degenerative changes in the thoracic spine. No acute fracture. CHEST WALL AND UPPER ABDOMEN: There are bilateral renal cysts, the largest measuring 3 cm in the left renal upper pole in the visualized extent. The chest wall is unremarkable. IMPRESSION: 1. No evidence of acute aortic abnormality, aneurysm, or dissection. 2. No evidence of left atrial or left ventricular thrombus. 3. Left atrial enlargement. 4. Suboptimal visualization of the pulmonary arteries; cannot exclude pulmonary thromboembolism. Repeat evaluation with CT pulmonary angiography is recommended, if clinically appropriate . /[place]
== END | disposition home or self-care (01) ==
LOC: RAH 09:07
PROVIDERS: ATTEND Internal Medicine Cardiovascular Disease
DX: I42.0 Dilated cardiomyopathy (principal); I48.91 Unspecified atrial fibrillation; I08.0 Rheumatic disorders of both mitral and aortic valves; N28.1 Cyst of kidney, acquired; M47.814 Spondylosis without myelopathy or radiculopathy, thoracic region
CPT/HCPCS: 71275; Q9967